=== PATIENT | female | born 1945 | race Hispanic/Latino ===

== ENCOUNTER 2017-10-26 07:33 | Emergency (ER) | payer OTHER ==
[2017-10-26] MEDS ORDERED: KETOROLAC 30 MG/ML INJ ONE (07:58)
[2017-10-26] MEDS ORDERED: ONDANSETRON 4 MG/2 ML VIAL ONE (07:58)
[2017-10-26] MEDS ORDERED: NA CHLORIDE 0.9% 1,000 ML ONE (07:59)
[2017-10-26 08:11] LABS: Absolute Lymphocytes (CBC) 4.4 K/uL (0.7-4.9); Absolute Monocytes 0.4 K/uL (0.1-1.3); Basophils % 1.6 % (0-1.3); Eosinophils % 1.3 % (0-4.4); Hematocrit 43.4 % (36.0-45.0); Lymphocytes % 54.1 % (15.3-44.8); MCH 32.2 pg (27.0-35.0); MCV 92.3 fL (80-100); MPV 8.9 fL (7.6-11.3); Monocytes % 5.6 % (3.3-12.3)
[2017-10-26 08:18] LABS: Urine Bacteria <20 /HPF (<20); Urine Culture Reflex Order NOT NEEDED; Urine RBC <5 /HPF (NONE SEEN)
[2017-10-26 08:27] LABS: Albumin 4.2 g/dL (3.4-5.0); Bilirubin Direct 0.2 mg/dL (0-0.2); Bilirubin Total 0.5 mg/dL (0.2-1.0); Potassium 3.5 mmol/L (3.5-5.1); Protein, Total 8.8 g/dL (6.4-8.2)
--- NOTE | 2017-10-26 09:38 | RAD REPORT ---
EXAM DESCRIPTION: CT - Abdomen Pelvis W Contrast - 10/26/2017 9:01 am CLINICAL HISTORY: Abdominal pain/right lower quadrant pain since yesterday. Diarrhea COMPARISON: March 2017 and 2013 TECHNIQUE: Computed axial tomography of the abdomen pelvis was obtained. 100 cc Isovue-300 was admin istered intravenously. Oral contrast was not requested which limits evaluation of bowel. All CT scans are performed using dose optimization technique as appropriate and may include automated exposure control or mA/KV adjustment according to patient size. FINDINGS: The gallbladder is mildly distended. Small hepatic cysts are present Spleen, pancreas, left adrenal and kidneys appear unremarkable. A 9 millimeter right adrenal mass is without significant change probably representing an adenoma. There is no evidence of diverticulitis. The appendix is normal A tiny umbilical hernia is present. A hysterectomy has been performed IMPRESSION: Mild gallbladder distention. Ultrasound may be helpful
[2017-10-26] MEDS ORDERED: FENTANYL CITR 100 MCG/2 ML ONE (10:22)
--- NOTE | 2017-10-26 12:03 | RAD REPORT ---
EXAM DESCRIPTION: US - Abdomen Exam Limited - 10/26/2017 10:36 am CLINICAL HISTORY: Abdominal pain. COMPARISON: Cat scan October 26, 2017 FINDINGS: The gallbladder wall is not thickened. A gallstone is not seen. Gallbladder is mildly dis tended The biliary tree is normal caliber. IMPRESSION: Mild gallbladder distention. Otherwise unremarkable exam
--- NOTE | 2017-10-26 12:14 | ER ---
Nurse's Notes [facility] Name: Maggie Hansen Age: 72 yrs Sex: Female : 1945 Arrival Date: 10/26/2017 Time: 07:35 Bed 5 Private MD: Diagnosis: Acute R lower quadrant abdominal pain;Diarrhea Presentation: 10/26 07:48 Presenting complaint: Patient states: diarrhea since yesterday, RLQ pain since this la1 morning. Transition of care: patient was not received from another setting of care. Onset of symptoms was October 26, 2017. Risk Assessment: Do you want to hurt yourself or someone else? Patient reports no desire to harm self or others. Initial Sepsis Screen: Does the patient meet any 2 criteria? No. Patient's initial sepsis screen is negative. Does the patient have a suspected source of infection? No. Patient's initial sepsis screen is negative. Care prior to arrival: None. 07:48 Method Of Arrival: Ambulatory la1 07:48 Acuity: NETTA 3 la1 Historical: - Allergies: 07:50 No Known Allergies; la1 - Home Meds: 07:50 metformin 1,000 mg Oral tr24 1 tab twice a day [Active]; lisinopril-hydrochlorothiazide la1 20-12.5 mg Oral tab 1 tab once daily [Active]; benzonatate 100 mg oral cap 1 cap 3 times per day [Active]; nifedipine 90 mg Oral TbER 1 tab once daily [Active]; meloxicam 7.5 mg oral tab 1 tab once daily [Active]; glimepiride 4 mg Oral tab 1 tab once daily [Active]; - PMHx: 07:50 Diabetes - NIDDM; Diverticulitis; Hypertension; la1 - Immunization history:: Adult Immunizations up to date. - Social history:: Smoking status: Patient/guardian denies using tobacco. - Ebola Screening: : No symptoms or risks identified at this time. - Family history:: not pertinent. - Hospitalizations: : No recent hospitalization is reported. Screenin:51 Abuse screen: Denies threats or abuse. Nutritional screening: No deficits noted. la1 Tuberculosis screening: No symptoms or risk factors identified. Fall Risk None identified. Assessment: 07:51 General: Appears uncomfortable, Behavior is cooperative. Pain: Complains of pain in la1 suprapubic area and right lower quadrant. Neuro: Level of Consciousness is awake, alert, obeys commands, Oriented to person, place, time, situation. Cardiovascular: Patient's skin is warm and dry. Respiratory: Airway is patent Respiratory effort is even, unlabored, Respiratory pattern is regular, symmetrical. GI: Abdomen is non-distended, obese, Bowel sounds present X 4 quads. Abd is soft X 4 quads Abdomen is tender to palpation in suprapubic area and right lower quadrant. GI: Reports diarrhea, nausea, Patient currently denies rectal bleeding. : No signs and/or symptoms were reported regarding the genitourinary system. 09:10 Reassessment: Patient appears in no apparent distress at this time. No changes from la1 previously documented assessment. Patient and/or family updated on plan of care and expected duration. Pain level reassessed. 12:28 Reassessment: Patient appears in no apparent distress at this time. No changes from la1 previously documented assessment. Patient and/or family updated on plan of care and expected duration. Pain level reassessed. Vital Signs: 07:50 BP 172 / 88; Pulse 62; Resp 15; Temp 97.7(O); Pulse Ox 94% on R/A; la1 08:02 BP 156 / 79; la1 10:25 BP 175 / 84; Pulse 56; Resp 19; Pulse Ox 94% on R/A; la1 11:32 BP 151 / 77; Pulse 59; Resp 19; Pulse Ox 100% on R/A; la1 12:28 BP 145 / 74; Pulse 61; Resp 19; Temp 97.6; Pulse Ox 100% on R/A; la1 ED Course: 07:35 Patient arrived in ED. as 07:37 Austin Milian PA is PHCP. jmm 07:38 Jesus Guillen MD is Attending Physician. jmm 07:47 Giovani Painter, [place] is Primary Nurse. la1 07:48 Triage completed. la1 07:50 Arm band placed on left wrist. la1 07:51 Placed in gown. Bed in low position. Call light in reach. Pulse ox on. NIBP on. la1 07:53 Radiology exam delayed due to lab results not completed at this time. (BUN/Creatinine). mw3 08:01 Inserted saline lock: 20 gauge in right forearm, using aseptic technique. Blood la1 collected. 08:56 CT completed. Patient tolerated procedure well. Patient moved back from CT. vr 09:00 CT Abd/Pelvis - W/Contrast In Process Unspecified. EDMS 10:34 Ultrasound completed. Patient tolerated well. aa4 10:34 US Abdomen Limited In Process Unspecified. EDMS 12:12 Jesus Villa MD is Referral Physician. ia 12:28 No provider procedures requiring assistance completed. IV discontinued, intact, la1 bleeding controlled, No redness/swelling at site. Pressure dressing applied. Administered Medications: 08:00 Drug: Zofran 4 mg Route: IVP; Site: right forearm; la1 09:23 Follow up: Response: No adverse reaction la1 08:00 Drug: TORadol 30 mg Route: IVP; Site: right forearm; la1 09:23 Follow up: Response: No adverse reaction; Pain is decreased la1 08:00 Drug: NS 0.9% 500 ml Route: IV; Rate: bolus; Site: right forearm; la1 09:23 Follow up: IV Status: Completed infusion la1 10:25 Drug: fentaNYL (PF) 50 mcg Route: IVP; Site: right forearm; la1 12:28 Follow up: Response: No adverse reaction; Pain is decreased la1 Outcome: 12:13 Discharge ordered by . wa 12:28 Discharged to home ambulatory, with family. la1 12:28 Condition: stable 12:28 Discharge instructions given to patient, Instructed on discharge instructions, follow up and referral plans. medication usage, Demonstrated understanding of instructions, follow-up care, medications, Prescriptions given X 4. 12:28 Patient left the ED. la1 Signatures: Dispatcher [employer] EDVT Austin Milian PA PA jmm Martinez, Amelia as Frazier, Amanda aaJasmina Cesar Lee, RN RN la1 Jesus Guillen MD MD wa Willis, Michelle mw3
--- NOTE | 2017-10-26 12:14 | EDPHYS ---
Physician Documentation [facility] Name: Maggie Hansen Age: 72 yrs Sex: Female : 1945 Arrival Date: 10/26/2017 Time: 07:35 Bed 5 Private MD: ED Physician Jesus Guillen HPI: 10/26 07:51 This 72 yrs old Female presents to ER via Ambulatory with complaints of wa Abdominal Pain. 07:51 The patient presents with abdominal pain in the periumbilical area. in the right upper wa quadrant, right lower quadrant. Onset: The symptoms/episode began/occurred 6 hour(s) ago, states began having diarrhea yesterday. Abd pain began at 2 AM last night. admits to nausea. no vomiting. denies fever. describes pain as burning. not radiating. admits to mild low back pain association. The symptoms do not radiate. Associated signs and symptoms: Pertinent positives: diarrhea, nausea, Pertinent negatives: chest pain, dysuria, fever, hematuria, palpitations, shortness of breath, vomiting. The symptoms are described as burning. Modifying factors: The symptoms are alleviated by nothing, the symptoms are aggravated by nothing. Severity of pain: At its worst the pain was moderate in the emergency department the pain is unchanged. The patient has experienced similar episodes in the past, a few times. The patient has not recently seen a physician. Historical: - Allergies: 07:50 No Known Allergies; la1 - Home Meds: 07:50 metformin 1,000 mg Oral tr24 1 tab twice a day [Active]; lisinopril-hydrochlorothiazide la1 20-12.5 mg Oral tab 1 tab once daily [Active]; benzonatate 100 mg oral cap 1 cap 3 times per day [Active]; nifedipine 90 mg Oral TbER 1 tab once daily [Active]; meloxicam 7.5 mg oral tab 1 tab once daily [Active]; glimepiride 4 mg Oral tab 1 tab once daily [Active]; - PMHx: 07:50 Diabetes - NIDDM; Diverticulitis; Hypertension; la1 - Immunization history:: Adult Immunizations up to date. - Social history:: Smoking status: Patient/guardian denies using tobacco. - Ebola Screening: : No symptoms or risks identified at this time. - Family history:: not pertinent. - Hospitalizations: : No recent hospitalization is reported. ROS: 07:54 Constitutional: Negative for fever, chills, and weight loss, Eyes: Negative for injury, wa pain, redness, and discharge, ENT: Negative for injury, pain, and discharge, Neck: Negative for injury, pain, and swelling, Cardiovascular: Negative for chest pain, palpitations, and edema, Respiratory: Negative for shortness of breath, cough, wheezing, and pleuritic chest pain, : Negative for injury, bleeding, discharge, and swelling, MS/Extremity: Negative for injury and deformity, Skin: Negative for injury, rash, and discoloration, Neuro: Negative for headache, weakness, numbness, tingling, and seizure, Psych: Negative for depression, anxiety, suicide ideation, homicidal ideation, and hallucinations. 07:54 Abdomen/GI: Positive for abdominal pain, nausea, diarrhea, Negative for vomiting, rectal pain, rectal bleeding. 07:54 Back: Positive for pain at rest, flank pain, on the right, of the diffuse lower back. 07:54 All other systems are negative. Exam: 07:56 Constitutional: This is a well developed, well nourished patient who is awake, alert, wa and in no acute distress. Head/Face: Normocephalic, atraumatic. Eyes: Pupils equal round and reactive to light, extra-ocular motions intact. Lids and lashes normal. Conjunctiva and sclera are non-icteric and not injected. Cornea within normal limits. Periorbital areas with no swelling, redness, or edema. ENT: Nares patent. No nasal discharge, no septal abnormalities noted. Tympanic membranes are normal and external auditory canals are clear. Oropharynx with no redness, swelling, or masses, exudates, or evidence of obstruction, uvula midline. Mucous membranes moist. Neck: Trachea midline, no thyromegaly or masses palpated, and no cervical lymphadenopathy. Supple, full range of motion without nuchal rigidity, or vertebral point tenderness. No Meningismus. Chest/axilla: Normal chest wall appearance and motion. Nontender with no deformity. No lesions are appreciated. Cardiovascular: Regular rate and rhythm with a normal S1 and S2. No gallops, murmurs, or rubs. Normal PMI, no JVD. No pulse deficits. Respiratory: Lungs have equal breath sounds bilaterally, clear to auscultation and percussion. No rales, rhonchi or wheezes noted. No increased work of breathing, no retractions or nasal flaring. Skin: Warm, dry with normal turgor. Normal color with no rashes, no lesions, and no evidence of cellulitis. MS/ Extremity: Pulses equal, no cyanosis. Neurovascular intact. Full, normal range of motion. Neuro: Awake and alert, GCS 15, oriented to person, place, time, and situation. Cranial nerves II-XII grossly intact. Motor strength 5/5 in all extremities. Sensory grossly intact. Cerebellar exam normal. Normal gait. Psych: Awake, alert, with orientation to person, place and time. Behavior, mood, and affect are within normal limits. 07:56 Abdomen/GI: Inspection: abdomen appears normal, Bowel sounds: normal, in all quadrants, Palpation: soft, in all quadrants, mild abdominal tenderness, in the epigastric area, moderate abdominal tenderness, in the right upper quadrant, severe abdominal tenderness, in the right lower quadrant. 07:56 Back: pain, is absent. Vital Signs: 07:50 BP 172 / 88; Pulse 62; Resp 15; Temp 97.7(O); Pulse Ox 94% on R/A; la1 08:02 BP 156 / 79; la1 10:25 BP 175 / 84; Pulse 56; Resp 19; Pulse Ox 94% on R/A; la1 11:32 BP 151 / 77; Pulse 59; Resp 19; Pulse Ox 100% on R/A; la1 12:28 BP 145 / 74; Pulse 61; Resp 19; Temp 97.6; Pulse Ox 100% on R/A; la1 MDM: 07:48 Patient medically screened. wa 07:57 Differential diagnosis: AAA, appendicitis, bowel obstruction, cholecystitis, wa diverticulitis, Mesenteric ischemia or infarction, non-specific abd pain, pancreatitis, Peritonitis, Ureterolithiasis, urinary tract infection. 07:57 Differential diagnosis: elderly female with abd pain and diarrhea. broad differential. wa will work up and reassess. pain control, anti-emetics, reassess. 12:10 Data reviewed: vital signs, nurses notes, lab test result(s), radiologic studies. Test wa interpretation: by ED physician or midlevel provider: elevated liver enzymes, otherwise labs wnl. CT abd/pelvis, US RUQ: mild gallbladder distention. no pericholecystic fluid or wall thickening. Response to treatment: the patient's symptoms have markedly improved after treatment. 10/26 07:48 Order name: Basic Metabolic Panel; Complete Time: 09: ct 10/26 07:48 Order name: CBC with Diff; Complete Time: 09:00 ct 10/26 07:48 Order name: Hepatic Function; Complete Time: 09:00 ct 10/26 07:48 Order name: Lipase; Complete Time: 09: ct 10/26 07:48 Order name: Urine Microscopic Only; Complete Time: 09: ct 10/26 07:49 Order name: Urine Dipstick--Ancillary (enter results) 10/26 07:48 Order name: IV Saline Lock; Complete Time: 08: ct 10/26 07:48 Order name: Labs collected and sent; Complete Time: 08: ct 10/26 07:49 Order name: CT Abd/Pelvis - W/Contrast; Complete Time: 12:10 ct 10/26 09:54 Order name: US Abdomen Limited; Complete Time: 12:09 ct 10/26 07:48 Order name: Urine Dipstick-Ancillary (obtain specimen); Complete Time: 07:52 ct Administered Medications: 08:00 Drug: Zofran 4 mg Route: IVP; Site: right forearm; la1 09:23 Follow up: Response: No adverse reaction la1 08:00 Drug: TORadol 30 mg Route: IVP; Site: right forearm; la1 09:23 Follow up: Response: No adverse reaction; Pain is decreased la1 08:00 Drug: NS 0.9% 500 ml Route: IV; Rate: bolus; Site: right forearm; la1 09:23 Follow up: IV Status: Completed infusion la1 10:25 Drug: fentaNYL (PF) 50 mcg Route: IVP; Site: right forearm; la1 12:28 Follow up: Response: No adverse reaction; Pain is decreased la1 Disposition: 10/26/17 12:13 Discharged to Home. Impression: Acute R lower quadrant abdominal pain, Diarrhea. - Condition is Stable. - Discharge Instructions: Abdominal Pain, Adult, [id number], Diarrhea, Adult, [id number]. - Prescriptions for Flagyl 500 mg Oral Tablet - take 1 tablet by ORAL route every 12 hours for 7 days; 14 tablet. Zofran 4 mg Oral Tablet - take 1 tablet by ORAL route every 12 hours As needed; 20 tablet. Cipro 500 mg Oral Tablet - take 1 tablet by ORAL route every 12 hours for 7 days; 14 tablet. Tramadol 50 mg Oral Tablet - take 1 tablet by ORAL route every 8 hours as needed; 12 tablet. - Medication Reconciliation Form, Thank You Letter, Antibiotic Education, Prescription Opioid Use form. - Follow up: Jesus Villa MD; When: 1 - 2 days; Reason: Recheck today's complaints. - Problem is new. - Symptoms have improved. - Notes: follow up with the gastro doctor within 2 days for further evaluation of your symptoms but return here immediately for worsening pain and or vomiting and or diarrhea Signatures: Dispatcher [employer] EDMS Giovani Painter RN RN la1 Jesus Guillen MD MD wa Corrections: (The following items were deleted from the chart) 12:28 12:13 10/26/2017 12:13 Discharged to Home. Impression: Acute R lower quadrant abdominal la1 pain; Diarrhea. Condition is Stable. Forms are Medication Reconciliation Form, Thank You Letter, Antibiotic Education, Prescription Opioid Use. Follow up: Jesus Villa; When: 1 - 2 days; Reason: Recheck today's complaints. Problem is new. Symptoms have improved. wa
[2017-10-26 13:50] LABS: Urine Blood TRACE (NEG); Urine Glucose NEGATIVE (NEG); Urine Protein NEGATIVE (NEG); Urine pH 5.5 (5.0-7.0)
== END 2017-10-26 12:28 | disposition home or self-care (01) ==
LOC: ER 07:33
DX: R10.31 Right lower quadrant pain (principal); R19.7 Diarrhea, unspecified; E11.9 Type 2 diabetes mellitus without complications; I10 Essential (primary) hypertension; Z79.84 Long term (current) use of oral hypoglycemic drugs
CPT/HCPCS: 36415; 74177; 76705; 80048; 80076; 83690; 85025; 96361; 96374; 96375; 99284; J2405; J3010; J7030; Q9967; 81003; 81015

== ENCOUNTER 2018-07-02 09:20 | Emergency (ER) | payer OTHER ==
[2018-07-02 10:13] LABS: Urine Blood TRACE (NEG); Urine Glucose NEGATIVE (NEG); Urine Protein TRACE (NEG)
[2018-07-02 10:22] LABS: Absolute Monocytes 0.6 K/uL (0.1-1.3); Absolute Neutrophil 3.2 K/uL (1.8-8.0); Basophils % 0.5 % (0-1.3); Eosinophils % 1.5 % (0-4.4); Hematocrit 40.3 % (36.0-45.0); Lymphocytes % 50.6 % (15.3-44.8); MPV 8.5 fL (7.6-11.3); RBC Red Blood Cell Count 4.39 M/uL (3.86-4.86)
[2018-07-02] MEDS ORDERED: METOCLOPRAMIDE 10 MG/2mL INJ ONE ×2 (10:26→10:32)
[2018-07-02] MEDS ORDERED: DIPHENHYDRAMINE 50 MG/ML VIAL ONE (10:26)
[2018-07-02] MEDS ORDERED: KETOROLAC 30 MG/ML INJ ONE (10:27)
[2018-07-02] MEDS ORDERED: NA CHLORIDE 0.9% 1,000 ML ONE (10:27)
[2018-07-02] MEDS ORDERED: CEFTRIAXONE/SWI 1gm 1 GM/10 ML SYR ONE (10:27)
--- NOTE | 2018-07-02 10:30 | RAD REPORT ---
EXAM DESCRIPTION: CT - Head Brain Wo Cont - 07/02/2018 10:23 am CLINICAL HISTORY: Headache, blurred vision COMPARISON: None. TECHNIQUE: Axial 5 mm thick images of the head were obtained without IV contrast. All CT scans are performed using dose optimization technique as appropriate and may include automated exposure control or mA/KV adjustment according to patient size. FINDINGS: No intracranial hemorrhage, mass, edema or shift of mid-line structures. No acute infarcti on changes seen. No abnormal extra-axial fluid collections. Minimal atrophy changes are present. No s ignificant chronic ischemic change identifiable. Ventricles are normal for the amount of volume loss. Mastoid air cells and visualized portions of the paranasal sinuses are clear. No acute bony findings. IMPRESSION: Negative non-contrast CT head examination for acute finding.
[2018-07-02] MEDS ORDERED: NA CHLORIDE 0.9% 100 ML IV ONE (10:32)
[2018-07-02 10:33] LABS: Urine Bacteria <20 /HPF (<20); Urine Culture Reflex Order NOT NEEDED; Urine RBC <5 /HPF (NONE SEEN)
[2018-07-02 10:40] LABS: Albumin 4.1 g/dL (3.4-5.0); Bilirubin Direct 0.1 mg/dL (0-0.2); Bilirubin Total 0.6 mg/dL (0.2-1.0); Potassium 3.8 mmol/L (3.5-5.1); Protein, Total 8.5 g/dL (6.4-8.2)
--- NOTE | 2018-07-02 10:49 | EDPHYS ---
Physician Documentation [facility] Name: Maggie Hansen Age: 73 yrs Sex: Female : 1945 Arrival Date: 07/02/2018 Time: 09:22 Bed 6 Private MD: ED Physician Jun Goncalves HPI: 07/02 10:47 This 73 yrs old Female presents to ER via Ambulatory with complaints of ma2 Headache, Dizziness. 10:47 The patient complains of pain to the forehead. Onset: The symptoms/episode ma2 began/occurred gradually, 1 day(s) ago. Associated signs and symptoms: Pertinent negatives: dizziness, neck stiffness, Photophobia sinus congestion, vertigo. Severity of symptoms: At its worst the pain was mild, in the emergency department the pain is unchanged. Headache History: The patient has had previous headaches and this one is similar to previous episodes. The patient has experienced similar episodes in the past. gradual headache. Historical: - Allergies: 09:40 No Known Allergies; aa5 - PMHx: 09:40 Diabetes - NIDDM; Diverticulitis; Hypertension; aa5 - PSHx: 09:40 ; Hysterectomy; neck; right shoulder; abd abscess; aa5 - Immunization history:: Adult Immunizations unknown. - Social history:: Patient/guardian denies using alcohol, street drugs, The patient lives with family, Smoking status: Patient/guardian denies using tobacco. - Ebola Screening: : No symptoms or risks identified at this time. - Family history:: not pertinent. ROS: 10:47 Constitutional: Negative for fever, chills, and weight loss. ma2 10:47 Neuro: Positive for headache, Negative for altered mental status, dizziness, speech changes, syncope, near syncope, tremor, weakness. 10:47 All other systems are negative. Exam: 10:47 Constitutional: This is a well developed, well nourished patient who is awake, alert, ma2 and in no acute distress. Head/Face: Normocephalic, atraumatic. Eyes: Pupils equal round and reactive to light, extra-ocular motions intact. Lids and lashes normal. Conjunctiva and sclera are non-icteric and not injected. Cornea within normal limits. Periorbital areas with no swelling, redness, or edema. ENT: Nares patent. No nasal discharge, no septal abnormalities noted. Tympanic membranes are normal and external auditory canals are clear. Oropharynx with no redness, swelling, or masses, exudates, or evidence of obstruction, uvula midline. Mucous membranes moist. Neck: Trachea midline, no thyromegaly or masses palpated, and no cervical lymphadenopathy. Supple, full range of motion without nuchal rigidity, or vertebral point tenderness. No Meningismus. Chest/axilla: Normal chest wall appearance and motion. Nontender with no deformity. No lesions are appreciated. Cardiovascular: Regular rate and rhythm with a normal S1 and S2. No gallops, murmurs, or rubs. Normal PMI, no JVD. No pulse deficits. Respiratory: Lungs have equal breath sounds bilaterally, clear to auscultation and percussion. No rales, rhonchi or wheezes noted. No increased work of breathing, no retractions or nasal flaring. Abdomen/GI: Soft, non-tender, with normal bowel sounds. No distension or tympany. No guarding or rebound. No evidence of tenderness throughout. Back: No spinal tenderness. No costovertebral tenderness. Full range of motion. Skin: Warm, dry with normal turgor. Normal color with no rashes, no lesions, and no evidence of cellulitis. MS/ Extremity: Pulses equal, no cyanosis. Neurovascular intact. Full, normal range of motion. Neuro: Awake and alert, GCS 15, oriented to person, place, time, and situation. Cranial nerves II-XII grossly intact. Motor strength 5/5 in all extremities. Sensory grossly intact. Cerebellar exam normal. Normal gait. Psych: Awake, alert, with orientation to person, place and time. Behavior, mood, and affect are within normal limits. Vital Signs: 09:40 BP 127 / 71; Pulse 58; Resp 16 S; Temp 97.8(TE); Pulse Ox 97% on R/A; Weight 70.31 kg aa5 (R); Height 5 ft. 1 in. (154.94 cm) (R); Pain 6/10; 10:30 BP 122 / 71; Pulse 53; Resp 18 S; Pulse Ox 96% on R/A; Pain 6/10; aa5 09:40 Body Mass Index 29.29 (70.31 kg, 154.94 cm) aa5 MDM: 09:38 Patient medically screened. ma2 10:47 Differential diagnosis: migraine, sinusitis, uti. Data reviewed: vital signs, nurses ma2 notes. Counseling: I had a detailed discussion with the patient and/or guardian regarding: the historical points, exam findings, and any diagnostic results supporting the discharge/admit diagnosis, the presence of at least one elevated blood pressure reading (>120/80) during this emergency department visit, the need for outpatient follow up. Response to treatment: the patient's symptoms have resolved after treatment. 07/02 09:54 Order name: Urine Dipstick--Ancillary (enter results); Complete Time: 10:29 bd 07/02 09:57 Order name: Urine Microscopic Only; Complete Time: 10:47 aa5 07/02 10:03 Order name: Basic Metabolic Panel; Complete Time: 10:47 ma2 07/02 10:03 Order name: CBC with Diff ma2 07/02 10:03 Order name: Creatinine for Radiology; Complete Time: 10:47 ma2 07/02 10:03 Order name: Hepatic Function; Complete Time: 10:47 ma2 07/02 10:03 Order name: Lipase; Complete Time: 10:47 ma2 07/02 10:03 Order name: CT Head Brain wo Cont; Complete Time: 10:47 ma2 07/02 10:24 Order name: Manual Differential EDMS 07/02 09:38 Order name: NPO; Complete Time: 09:41 ma2 07/02 09:39 Order name: Urine Dipstick-Ancillary (obtain specimen); Complete Time: 09:53 ma2 07/02 10:03 Order name: IV Saline Lock; Complete Time: 10:23 ma2 07/02 10:03 Order name: Labs collected and sent; Complete Time: 10:23 ma2 Administered Medications: 10:27 Drug: Benadryl 25 mg Route: IVP; Site: right forearm; aa5 10:35 Follow up: Response: No adverse reaction aa5 10:28 Drug: NS 0.9% 1000 ml Route: IV; Rate: 1 bolus; Site: right forearm; aa5 11:08 Follow up: IV Status: Completed infusion; IV Intake: 1000ml aa5 10:28 Drug: TORadol 30 mg Route: IVP; Site: right forearm; aa5 10:35 Follow up: Response: No adverse reaction aa5 10:30 Drug: Rocephin 1 grams Route: IV; Rate: calculated rate; Site: right forearm; aa5 10:32 Follow up: IV Status: Completed infusion; IV Intake: 10ml aa5 10:34 Follow up: Response: No adverse reaction aa5 10:33 Drug: Reglan 20 mg Route: IVP; Site: right forearm; aa5 10:48 Follow up: Response: No adverse reaction; infusion completed. aa5 Point of Care Testing: Blood Glucose: 09:46 Blood Glucose: 156 mg/dL; aa5 Ranges: Critical Glucose Levels:Adult <50 mg/dl or >400 mg/dl <40 mg/dl or >180 mg/dl Disposition: 07/02/18 10:49 Discharged to Home. Impression: Cystitis, unspecified without hematuria. - Condition is Stable. - Discharge Instructions: Urinary Tract Infection, Adult. - Prescriptions for Bactrim DS 800- 160 mg Oral Tablet - take 1 tablet by ORAL route every 12 hours for 10 days; 20 tablet. Tylenol- Codeine #3 300-30 mg Oral Tablet - take 2 tablet by ORAL route every 6 hours As needed; 30 tablet. - Medication Reconciliation Form, Thank You Letter, Antibiotic Education, Prescription Opioid Use form. - Follow up: Private Physician; When: Tomorrow; Reason: Continuance of care. Signatures: Dispatcher [employer] Sarah Diehl RN RN aa5 Jun Goncalves MD MD ma2 Corrections: (The following items were deleted from the chart) 11:10 10:49 07/02/2018 10:49 Discharged to Home. Impression: Cystitis, unspecified without aa5 hematuria. Condition is Stable. Prescriptions for Bactrim DS 800-160 mg Oral Tablet - take 1 tablet by ORAL route every 12 hours for 10 days; 20 tablet, Tylenol-Codeine #3 300-30 mg Oral Tablet - take 2 tablet by ORAL route every 6 hours As needed; 30 tablet. and Forms are Medication Reconciliation Form, Thank You Letter, Antibiotic Education, Prescription Opioid Use. Follow up: Private Physician; When: Tomorrow; Reason: Continuance of care. ma2
--- NOTE | 2018-07-02 10:49 | ER ---
Nurse's Notes [facility] Name: Maggie Hansen Age: 73 yrs Sex: Female : 1945 Arrival Date: 07/02/2018 Time: : Bed 6 Private MD: Diagnosis: Cystitis, unspecified without hematuria Presentation: 07/02 09:37 Presenting complaint: Patient states: "I was eating dinner last night and I had blurry aa5 vision and felt dizzy for about 30 minutes and then it went away". Pt currently denies dizziness, blurry vision. Pt c/o headache and ringing in ears. Denies nausea/vomiting. Transition of care: patient was not received from another setting of care. Onset of symptoms was July 01, 2018. Risk Assessment: Do you want to hurt yourself or someone else? Patient reports no desire to harm self or others. Initial Sepsis Screen: Does the patient meet any 2 criteria? No. Patient's initial sepsis screen is negative. Does the patient have a suspected source of infection? No. Patient's initial sepsis screen is negative. Care prior to arrival: None. 09:37 Method Of Arrival: Ambulatory aa5 09:37 Acuity: NETTA 3 aa5 Historical: - Allergies: 09:40 No Known Allergies; aa5 - PMHx: 09:40 Diabetes - NIDDM; Diverticulitis; Hypertension; aa5 - PSHx: 09:40 ; Hysterectomy; neck; right shoulder; abd abscess; aa5 - Immunization history:: Adult Immunizations unknown. - Social history:: Patient/guardian denies using alcohol, street drugs, The patient lives with family, Smoking status: Patient/guardian denies using tobacco. - Ebola Screening: : No symptoms or risks identified at this time. - Family history:: not pertinent. Screenin:46 Abuse screen: Denies threats or abuse. Nutritional screening: No deficits noted. aa5 Tuberculosis screening: No symptoms or risk factors identified. Fall Risk None identified. Assessment: 09:40 General: Appears comfortable, Behavior is calm, cooperative. Pain: Complains of pain in aa5 whole head Pain does not radiate. Pain currently is 6 out of 10 on a pain scale. Quality of pain is described as pressure, Pain began this morning Is continuous. 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 Gait is steady, Speech is normal, Facial symmetry appears normal, Pupils are PERRLA. Cardiovascular: Heart tones S1 S2 present Rhythm is regular. Respiratory: Airway is patent Respiratory effort is even, unlabored, Respiratory pattern is regular, symmetrical. GI: Patient currently denies nausea, vomiting. : No signs and/or symptoms were reported regarding the genitourinary system. EENT: No signs and/or symptoms were reported regarding the EENT system. Derm: Skin is pink, warm \\T\\ dry. Musculoskeletal: Range of motion: intact in all extremities. 10:16 Reassessment: Patient is alert, oriented x 3, equal unlabored respirations, skin aa5 warm/dry/pink. Pt taken to CT . 10:36 Reassessment: Patient is alert, oriented x 3, equal unlabored respirations, skin aa5 warm/dry/pink. Pt back from CT . 10:59 Reassessment: Patient is alert, oriented x 3, equal unlabored respirations, skin aa5 warm/dry/pink. Patient states feeling better. Pain: Pain currently is 3 out of 10 on a pain scale. Vital Signs: 09:40 BP 127 / 71; Pulse 58; Resp 16 S; Temp 97.8(TE); Pulse Ox 97% on R/A; Weight 70.31 kg aa5 (R); Height 5 ft. 1 in. (154.94 cm) (R); Pain 6/10; 10:30 BP 122 / 71; Pulse 53; Resp 18 S; Pulse Ox 96% on R/A; Pain 6/10; aa5 09:40 Body Mass Index 29.29 (70.31 kg, 154.94 cm) aa5 ED Course: 09:22 Patient arrived in ED. rg4 09:37 Sarah Zelaya, [place] is Primary Nurse. aa5 09:37 Arm band placed on Patient placed in an exam room, on a stretcher. aa5 09:37 Patient has correct armband on for positive identification. Placed in gown. Bed in low aa5 position. Call light in reach. Side rails up X 1. Adult w/ patient. 09:38 Jun Goncalves MD is Attending Physician. ma2 09:39 Triage completed. aa5 10:15 No provider procedures requiring assistance completed. Initial lab(s) drawn, by , aa5 sent to lab. Inserted saline lock: 20 gauge in right forearm, using aseptic technique. Blood collected. 10:23 CT Head Brain wo Cont In Process Unspecified. EDMS 10:34 CT completed. Patient tolerated procedure well. Patient moved to CT via wheelchair. jg6 Patient moved back from CT. 11:08 IV discontinued, intact, bleeding controlled, No redness/swelling at site. Pressure aa5 dressing applied. Administered Medications: 10:27 Drug: Benadryl 25 mg Route: IVP; Site: right forearm; aa5 10:35 Follow up: Response: No adverse reaction aa5 10:28 Drug: NS 0.9% 1000 ml Route: IV; Rate: 1 bolus; Site: right forearm; aa5 11:08 Follow up: IV Status: Completed infusion; IV Intake: 1000ml aa5 10:28 Drug: TORadol 30 mg Route: IVP; Site: right forearm; aa5 10:35 Follow up: Response: No adverse reaction aa5 10:30 Drug: Rocephin 1 grams Route: IV; Rate: calculated rate; Site: right forearm; aa5 10:32 Follow up: IV Status: Completed infusion; IV Intake: 10ml aa5 10:34 Follow up: Response: No adverse reaction aa5 10:33 Drug: Reglan 20 mg Route: IVP; Site: right forearm; aa5 10:48 Follow up: Response: No adverse reaction; infusion completed. aa5 Point of Care Testing: Blood Glucose: 09:46 Blood Glucose: 156 mg/dL; aa5 Ranges: Intake: 10:32 IV: 10ml; Total: 10ml. aa5 11:08 IV: 1000ml; Total: 1010ml. aa5 Outcome: 10:49 Discharge ordered by . ma2 11:08 Discharged to home ambulatory, with family. aa5 11:08 Condition: improved 11:08 Discharge instructions given to patient, family, Instructed on discharge instructions, follow up and referral plans. medication usage, Demonstrated understanding of instructions, follow-up care, medications, Prescriptions given X 2. 11:10 Patient left the ED. aa5 Signatures: Dispatcher [employer] EDSarah Blakely RN RN aa5 Maryjane Waddell rg4 Jun Goncalves MD MD ma2 Fernanda Waddell jg6 Corrections: (The following items were deleted from the chart) 09:41 09:37 Presenting complaint: Patient states: "I was eating dinner last night and I had aa5 blurry vision and felt dizzy for about 30 minutes and then it went away". Pt currently denies dizziness, blurry vision. Pt c/o headache and ringing in ears. aa5 09:54 09:40 BP 127 / 71; Pulse 58bpm; Resp 16bpm; Spontaneous; Pulse Ox 97% RA; 70.31 kg aa5 Reported; Height 5 ft. 1 in. Reported; BMI: 29.2; Pain 6/10; aa5
[2018-07-02 11:22] LABS: Blood Morphology Comment NOT SEEN (NOT SEEN); Platelet Estimate ADEQ
== END 2018-07-02 11:10 | disposition home or self-care (01) ==
LOC: ER 09:20
DX: N30.90 Cystitis, unspecified without hematuria (principal); I10 Essential (primary) hypertension
CPT/HCPCS: 96361; 85025; 80048; 36415; 82962; 80076; 83690; 70450; 96375; 96374; 99284; J2765 ×2; J0696; J7030; 81003; 81015

== ENCOUNTER 2020-02-29 14:38 | Emergency (ER) | payer OTHER ==
--- NOTE | 2020-02-29 16:57 | RAD REPORT ---
EXAM DESCRIPTION: RAD - Knee Right 3 View - 02/29/2020 4:47 pm CLINICAL HISTORY: PAIN COMPARISON: No comparisons FINDINGS: No fracture, dislocation or periosteal reaction.Large joint effusion is present. Patella m arginal spurs are present. There is significant marginal spurring in the lateral compartment with ilia nt space narrowing. Medial compartment marginal spurs are also present. Calcified loose bodies are se en at the anterior margin of the joint in the midline. No foreign body or other soft tissue abnormali ty. IMPRESSION: Moderately prominent degenerative changes in the knee with large joint effusion and intr a-articular loose bodies. Clinical concerns for internal derangement or occult bony injury could be further assessed with MR im aging.
--- NOTE | 2020-02-29 17:26 | EDPHYS ---
Physician Documentation [facility] Name: Maggie Hansen Age: 74 yrs Sex: Female : 1945 Arrival Date: 02/29/2020 Time: 14:40 Bed 27 Private MD: ED Physician Conner Armendariz HPI: 02/28 17:03 This 74 yrs old Female presents to ER via Wheelchair with complaints of Leg rn Pain. 17:03 The patient presents with pain. The complaints affect the right knee. rn 17:04 Onset: The symptoms/episode began/occurred this morning. Modifying factors: The rn symptoms are alleviated by nothing. the symptoms are aggravated by movement, weight bearing, bending knee. Severity of symptoms: At their worst the symptoms were moderate, in the emergency department the symptoms are unchanged. The patient has not experienced similar symptoms in the past. Reports right knee pain since this AM, no known injury, no fever, does not feel ill. . Historical: - Allergies: 14:47 No Known Allergies; ll1 - PMHx: 14:47 Diabetes - NIDDM; Diverticulitis; Hypertension; ll1 - PSHx: 14:47 ; Hysterectomy; neck; right shoulder; abd abscess; ll1 - Immunization history:: Flu vaccine is up to date. - Social history:: Smoking status: Patient denies any tobacco usage or history of. - Family history:: not pertinent. - Hospitalizations: : No recent hospitalization is reported. ROS: 17:04 Constitutional: Negative for fever, chills, and weight loss, MS/Extremity: Negative for rn injury and deformity, Skin: Negative for injury, rash, and discoloration, Neuro: Negative for weakness, numbness, tingling Exam: 17:04 Constitutional: This is a well developed, well nourished patient who is awake, alert, rn and in no acute distress. MS/ Extremity: Pulses equal, no cyanosis. Neurovascular intact. Mild swelling right knee without erythema or warmth. No streaking or rash. Neuro: Awake and alert, GCS 15 Vital Signs: 14:48 BP 139 / 75; Pulse 53; Resp 17; Temp 97.0; Pulse Ox 100% on R/A; Weight 67.13 kg; ll1 Height 5 ft. (152.40 cm); Pain 10/10; 17:48 BP 148 / 53; Pulse 50; Pulse Ox 100% on R/A; jp3 14:48 Body Mass Index 28.90 (67.13 kg, 152.40 cm) ll1 MDM: 17:01 Patient medically screened. rn 17:24 Differential diagnosis: arthritis, knee effusion. Data reviewed: vital signs, nurses rn notes, radiologic studies, plain films, and as a result, I will discharge patient. Counseling: I had a detailed discussion with the patient and/or guardian regarding: the historical points, exam findings, and any diagnostic results supporting the discharge/admit diagnosis, radiology results, the need for outpatient follow up, to return to the emergency department if symptoms worsen or persist or if there are any questions or concerns that arise at home. Special discussion: I discussed with the patient/guardian in detail that at this point there is no indication for admission to the hospital. It is understood, however, that if the symptoms persist or worsen the patient needs to return immediately for re-evaluation. Based on the history and exam findings, there is no indication for further emergent testing or inpatient evaluation. I discussed with the patient/guardian the need to see the orthopedic surgeon for further evaluation of the symptoms. I discussed with the patient/guardian the need to see the primary care provider for further evaluation of the symptoms. ED course: Pt states noticed when getting up to go use bathroom overnight, may have stepped wrong and had right knee pain. Reports this happens often and eventually goes away, but more painful today. No hx of gout or septic arthritis. . 02/28 15:48 Order name: XRAY Knee RIGHT 3 view; Complete Time: 17:01 rn Administered Medications: 17:42 Drug: Decadron 10 mg Route: IM; Site: right deltoid; iw 17:51 Not Given (Physician Discretion): Motrin 600 mg PO once iw 17:52 Drug: Motrin 400 mg Route: PO; iw Disposition: 02/29/20 17:26 Discharged to Home. Impression: Effusion, right knee, Osteoarthritis of knee. - Condition is Stable. - Discharge Instructions: Arthritis, Knee Effusion, Knee Immobilizer. - Prescriptions for Tramadol 50 mg Oral Tablet - take 1 tablet by ORAL route every 8 hours as needed; 12 tablet. Medrol (Sigifredo) 4 mg Oral Tablets, Dose Pack - take 1 tablet by ORAL route as directed - follow package instructions; 1 packet. - Medication Reconciliation Form, Thank You Letter, Antibiotic Education, Prescription Opioid Use form. - Follow up: Jagdish Reynolds MD; When: 5 - 6 days; Reason: Recheck today's complaints, Re-evaluation by your physician. - Problem is new. - Symptoms have improved. Signatures: Dispatcher [employer] EDBridget Moss RN RN iw Conner Armendariz MD MD rn Lewis, Lynsay, RN RN ll1 Corrections: (The following items were deleted from the chart) 18:13 17:26 02/29/2020 17:26 Discharged to Home. Impression: Effusion, right knee; iw Osteoarthritis of knee. Condition is Stable. Forms are Medication Reconciliation Form, Thank You Letter, Antibiotic Education, Prescription Opioid Use. Follow up: Dr. Jagdish Reynolds; When: 5 - 6 days; Reason: Recheck today's complaints, Re-evaluation by your physician. Problem is new. Symptoms have improved. rn
--- NOTE | 2020-02-29 17:26 | ER ---
Nurse's Notes [facility] Name: Maggie Hansen Age: 74 yrs Sex: Female : 1945 Arrival Date: 02/29/2020 Time: 14:40 Bed 27 Private MD: Diagnosis: Effusion, right knee;Osteoarthritis of knee Presentation: 02/28 14:48 Chief complaint: Patient states: R knee pain since 0100 am. No trauma or falls. ll1 Coronavirus screen: Client denies travel out of the [place] in the last 14 days. At this time, the client does not indicate any symptoms associated with coronavirus-19. Ebola Screen: Patient denies travel to an Ebola-affected area in the 21 days before illness onset. Initial Sepsis Screen: Does the patient meet any 2 criteria? No. Patient's initial sepsis screen is negative. Does the patient have a suspected source of infection? Yes: Bone or joint infection. Risk Assessment: Do you want to hurt yourself or someone else? Patient reports no desire to harm self or others. Onset of symptoms was February 29, 2020. 14:48 Method Of Arrival: Wheelchair ll1 14:48 Acuity: NETTA 4 ll1 Historical: - Allergies: 14:47 No Known Allergies; ll1 - PMHx: 14:47 Diabetes - NIDDM; Diverticulitis; Hypertension; ll1 - PSHx: 14:47 ; Hysterectomy; neck; right shoulder; abd abscess; ll1 - Immunization history:: Flu vaccine is up to date. - Social history:: Smoking status: Patient denies any tobacco usage or history of. - Family history:: not pertinent. - Hospitalizations: : No recent hospitalization is reported. Vital Signs: 14:48 BP 139 / 75; Pulse 53; Resp 17; Temp 97.0; Pulse Ox 100% on R/A; Weight 67.13 kg; ll1 Height 5 ft. (152.40 cm); Pain 10/10; 17:48 BP 148 / 53; Pulse 50; Pulse Ox 100% on R/A; jp3 14:48 Body Mass Index 28.90 (67.13 kg, 152.40 cm) ll1 ED Course: 14:40 Patient arrived in ED. rg4 14:47 Arm band placed on. ll1 14:49 Triage completed. ll1 16:47 XRAY Knee RIGHT 3 view In Process Unspecified. EDMS 17:01 Conner Armendariz MD is Attending Physician. rn 17:25 Jagdish Reynolds MD is Referral Physician. rn 17:31 Bridget Coppola RN is Primary Nurse. iw Administered Medications: 17:42 Drug: Decadron 10 mg Route: IM; Site: right deltoid; iw 17:51 Not Given (Physician Discretion): Motrin 600 mg PO once iw 17:52 Drug: Motrin 400 mg Route: PO; iw Outcome: 17:26 Discharge ordered by . rn 18:13 Patient left the ED. iw Signatures: Dispatcher [employer] EDMS Bridget Coppola RN RN iw Conner Armendariz MD MD rn Garcia, Rubi rg4 Rishi Martinez 3 Sandrita Kern RN RN ll1
[2020-02-29] MEDS ORDERED: dexAMETHasone 10 MG/ML VIAL ONE (17:52)
[2020-02-29] MEDS ORDERED: IBUPROFEN 200 MG TAB PO ONE (17:52)
[2020-02-29 19:32] VITALS: TEMP 97; O2SAT 100
[2020-02-29 19:33] VITALS: BP 148/53
== END 2020-02-29 18:13 | disposition home or self-care (01) ==
LOC: ER 14:38
DX: M25.461 Effusion, right knee (principal); M17.11 Unilateral primary osteoarthritis, right knee; I10 Essential (primary) hypertension
CPT/HCPCS: 73562; 96372; 99283; J1100

== ENCOUNTER 2021-05-12 07:42 | Emergency (ER) | payer OTHER ==
--- OUTSIDE RECORDS SUMMARY | 2021-05-12 07:46 | XMS REPORT | Continuity of Care Document ---
:1945 Author Organization [facility] t Address [address] [place] [address] Care Team Providers Name Role Phone KRAI Attending Clinician Unavailable Luz_Glenroy Attending Clinician Unavailable KIRA Attending Clinician Unavailable KHADIJAH MALDONADO Attending Clinician Unavailable RIANNA_Stephanie Attending Clinician Unavailable KARI Admitting Clinician Unavailable Luz_Thbrian Admitting Clinician Unavailable KIRA Admitting Clinician Unavailable RIANNA_Stephanie Admitting Clinician Unavailable Payers Payer Name Policy Type Policy Number Effective Date Expiration Date Geovanna ALEXANDRA (MEDICARE [id number] 2019 REPLACEMENT PPO) 00:00:00 Problems Condition Condition Condition Status Onset Resolution Last Treating Co mments Source Name Details Category Date Date Treatment Clinician Date Osteopenia Osteopenia Problem Active [facility] Elevated Elevated Problem Active [place] liver Liver 3-23 da enzymes Enzymes 00:00: [facility] level Level 00 al [facility] Hypertrigl Hypertrigl Problem Active [facility] [place] yceridemia yceridemia 3-15 da [facility] Increased Increased Problem Active [place] liver Liver 3-15 da function Function 00:00: [facility] Ex-smoker Ex-smoker Problem Active [place] 3-09 da [facility] Type 2 Type 2 Problem Active [place] diabetes Diabetes da mellitus Mellitus [facility] Hypertensi Hypertensi Problem Active [facility] ve ve da disorder Disorder [facility] Allergies, Adverse Reactions, Alerts This patient has no known allergies or adverse reactions. Social History Smoking Status Start Date Stop Date Source Former Smoker Preston Walsh [facility] Medications Ordered Filled Start Stop Current Ordering Indication Dosage Frequency Signature Comments Components Source Medication Medication Date Date Medication? Clinician (SIG) Name Name alendronate alendronate No alendronat [place] 35 mg 35 mg e 35 mg da tablet TAKE tablet TAKE tablet [facility] 1 TABLET BY 1 TABLET BY TAKE 1 al MOUTH EVERY MOUTH EVERY TABLET BY Health WEEK WEEK MOUTH Outreac DIRECTED DIRECTED EVERY WEEK h Program DIRECTED glimepiride glimepiride No glimepirid [place] 4 mg tablet 4 mg tablet e 4 mg da TAKE 1 TAKE 1 tablet [facility] TABLET BY TABLET BY TAKE 1 al MOUTH IN MOUTH IN TABLET BY He alth THE MORNING THE MORNING MOUTH IN Outreac THE h MORNING Program hydrocortis hydrocortis No hydrocorti [place] one 2.5 % one 2.5 % sone 2.5 % da topical topical topical [facility] p cream APPLY cream APPLY cream al A THIN A THIN APPLY A Health LAYER TO LAYER TO THIN LAYER O utreac THE THE TO THE h AFFECTED AFFECTED AFFECTED Pro gram AREA(S) BY AREA(S) BY AREA(S) BY TOPICAL TOPICAL TOPICAL ROUTE 2 ROUTE 2 ROUTE 2 TIMES PER TIMES PER TIMES PER DAY DAY DAY hydroxyzine hydroxyzine No 1 BID hydroxyzin [place] HCl 25 mg HCl 25 mg e HCl 25 d a tablet Take tablet Take mg tablet [facility] 1 tablet 1 tablet Take 1 al twice a day twice a day tablet Health by oral by oral twice a Outrea c route for route for day by h 10 days. 10 days. oral route P rogram for 10 days. Janumet 50 Janumet 50 No 1 BID Janumet 50 [place] mg-1,000 mg mg-1,000 mg mg-1,000 da tablet Take tablet Take mg tablet [facility] 1 tablet 1 tablet Take 1 al twice a day twice a day tablet Health by oral by oral twice a Outrea c route. route. day by h oral Program route. Jardiance Jardiance No Jardiance [place] 25 mg 25 mg 25 mg da tablet TAKE tablet TAKE tablet [facility] 1 TABLET BY 1 TABLET BY TAKE 1 al MOUTH EVERY MOUTH EVERY TABLET BY Health DAY DAY MOUTH Outreac EVERY DAY h Program lisinopril lisinopril No lisinopril [place] 20 20 20 da mg-hydrochl mg-hydrochl mg-hydroch [facility] orothiazide orothiazide lorothiazi al 12.5 mg 12.5 mg de 12.5 mg Hea lth tablet TAKE tablet TAKE tablet Outreac 2 TABLETS 2 TABLETS TAKE 2 h BY MOUTH BY MOUTH TABLETS BY P rogram EVERY DAY EVERY DAY MOUTH EVERY DAY nifedipine nifedipine No nifedipine [place] ER 90 mg ER 90 mg ER 90 mg da tablet,exte tablet,exte tablet,ext [facility] nded nded ended al release release release Health TAKE 1 TAKE 1 TAKE 1 Outreac TABLET BY TABLET BY TABLET BY h MOUTH EVERY MOUTH EVERY MOUTH Program DAY DAY EVERY DAY OneTouch OneTouch No OneTouch [place] Verio test Verio test Verio test da strips USE strips USE strips USE [facility] TO CHECK TO CHECK TO CHECK al BLOOD SUGAR BLOOD SUGAR BLOOD Health ONCE DAILY ONCE DAILY SUGAR ONCE Outreac DAILY h Program rosuvastati rosuvastati No rosuvastat [place] n 5 mg n 5 mg in 5 mg da tablet TAKE tablet TAKE tablet [facility] 1 TABLET BY 1 TABLET BY TAKE 1 al MOUTH EVERY MOUTH EVERY TABLET BY Health DAY DAY MOUTH Outreac EVERY DAY h Program Victoza Victoza No Victoza [place] 3-Sigifredo 0.6 3-Sigifredo 0.6 3-Sigifredo 0.6 da mg/0.1 mL mg/0.1 mL mg/0.1 mL [facility] (18 mg/3 (18 mg/3 (18 mg/3 al mL) mL) mL) Health subcutaneou subcutaneou subcutaneo Outreac s pen s pen us pen h injector injector injector Pro gram ADMINISTER ADMINISTER ADMINISTER 1.2 MG 1.2 MG 1.2 MG UNDER THE UNDER THE UNDER THE SKIN EVERY SKIN EVERY SKIN EVERY DAY DAY DAY Immunizations Ordered Immunization Filled Immunization Date Status Commen ts Source Name Name COVID-19, mRNA, COVID-19, mRNA, 2021-01-11 Completed Archie lawrence LNP-S, PF, 100 LNP-S, PF, 100 15:55:52 [facility] pal mcg/0.5 mL dose mcg/0.5 mL dose Heal th Outreach (Modern) (Moderna) Program Influenza vaccine, Influenza vaccine, 2020-11-03 Completed [facility] quadrivalent, quadrivalent, 14:54:30 [facility] adjuvanted adjuvanted [facility] pneumococcal pneumococcal 2020-11-03 Completed [facility] polysaccharide PPV23 polysaccharide PPV23 14:53:53 [facility] COVID-19, mRNA, COVID-19, mRNA, 2020-06-10 Completed Almanza howard LNP-S, PF, 100 LNP-S, PF, 100 14:49:48 [facility] pal mcg/0.5 mL dose mcg/0.5 mL dose [facility] (Moderna) (Moderna) Program COVID-19, mRNA, COVID-19, mRNA, 2020-05-06 Completed Almanza howard LNP-S, PF, 100 LNP-S, PF, 100 14:34:12 [facility] pal mcg/0.5 mL dose mcg/0.5 mL dose [facility] (Moderna) (Moderna) Program Vital Signs Vital Name Observation Time Observation Value Comments Source BP Diastolic 2021-01-16 00:00:00 [facility] Height 2021-01-16 00:00:00 62 [in_i[facility] BMI (Body Mass 2021-01-16 00:00:00 25.2 kg/m2 [place] service desk team lead Scientologist Index) [facility] Outreach Program BP Systolic 2021-01-16 00:00:00 136 [facility]Hg[facility] Body Weight 2021-01-16 00:00:00 2208 [facility]oz_av[facility] BP Diastolic 2021-01-03 00:00:00 78 [facility]Hg[facility] Height 2021-01-03 00:00:00 62 [in_i] [place] [facility] BMI (Body Mass 2021-01-03 00:00:00 24.7 kg/m2 [place] service desk team lead Scientologist Index) [facility] BP Systolic 2021-01-03 00:00:00 133 mm[Hg] [facility] Body Weight 2021-01-03 00:00:00 2160 [oz_av] [place] [facility] BP Diastolic 2020-11-03 00:00:00 77 mm[Hg] [place] [facility] Height 2020-11-03 00:00:00 62 [in_i] [place] [facility] BMI (Body Mass 2020-11-03 00:00:00 25.1 kg/m2 [place] service desk team lead Scientologist Index) [facility] BP Systolic 2020-11-03 00:00:00 123 mm[Hg] [place] [facility] Body Weight 2020-11-03 00:00:00 2192 [oz_av] [place] [facility] BP Diastolic 2020-10-03 00:00:00 77 mm[Hg] [place] [facility] Height 2020-10-03 00:00:00 62 [in_i] [place] [facility] BMI (Body Mass 2020-10-03 00:00:00 25.2 kg/m2 [place] service desk team lead Scientologist Index) [facility] BP Systolic 2020-10-03 00:00:00 132 mm[Hg] [place] [facility] Body Weight 2020-10-03 00:00:00 2208 [oz_av] [place] [facility] BP Diastolic 2020-06-28 00:00:00 70 mm[Hg] [place] [facility] Height 2020-06-28 00:00:00 62 [in_i] [place] [facility] BMI (Body Mass 2020-06-28 00:00:00 26 kg/m2 [place] service desk team lead Scientologist Index) [facility] BP Systolic 2020-06-28 00:00:00 114 mm[Hg] [place] [facility] Body Weight 2020-06-28 00:00:00 2275.2 [oz_av] [place] service desk team lead [facility] BP Diastolic 2020 00:00:00 65 mm[Hg] [place] [facility] Height 2020 00:00:00 62 [in_i] [place] [facility] BMI (Body Mass 2020 00:00:00 26.3 kg/m2 [place] service desk team lead Scient[facility] Index) [facility] BP Systolic 2020 00:00:00 103 mm[Hg] [place] [facility] Body Weight 2020 00:00:00 2304 [oz_av] [place] [facility] BP Diastolic 2020-05-10 00:00:00 62 mm[Hg] [place] [facility] Height 2020-05-10 00:00:00 62 [in_i] [place] [facility] BMI (Body Mass 2020-05-10 00:00:00 26.6 kg/m2 [place] service desk team lead Scientologist Index) [facility] Out[facility] BP Systolic 2020-05-10 00:00:00 119 mm[Hg] [place] [facility] Body Weight 2020-05-10 00:00:00 2328 [oz_av] [facility] Procedures Procedure Date / Time Performing Clinician Source Performed Ophthalmic Examination 2020-06-30 00:00:00 Rex fernández [facility] DXA BONE DENSITY, AXIAL 2020-06-28 00:00:00 Archie lawrence [facility] Total Hysterectomy 1994-03-04 00:00:00 [facility] Plan of Care Planned Activity Planned Date Details Comments Source Future Appointment 2021-07-03 00:00:00 Preston Martinez Scientologist [address]; , [place], [place] Program [id number] Encounters Start End Encounter Admission Attending Care Care Encounter Source Date/Time Date/Time Type Type Clinicians Facility Department ID 2021-01-17 2021-01-17 Outpatient KIKE EDGAR [facility] [id number] [place] 07:53:00 07:53:00 _ANN [id number] [facility] 2021-01-16 2021-01-16 Outpatient KIKE HIMARJORIE [facility] [id number] [place] 05:56:00 05:56:00 _ANN [id number] [facility] 2021-01-16 2021-01-16 Yocasta [facility] [place] - [id number] [place] 00:00:00 00:00:00 Preston Dc [employer]PERATIVE: [address] [facility] [address] [facility] [address], [place], [place] [id number] h , Ph. Program 2021-01-11 2021-01-11 Outpatient SHIMEK_MARGIE EDG[facility] 107 [place] 04:38:00 04:38:00 _ANN [id number] [facility] 2021-01-11 2021-01-11 Sophy [facility] [place] - [id number] [place] 00:00:00 00:00:00 Preston West MD: 1700 [facility] [address], [place], [place] Outreac [id number] h , Ph. Program 2021-01-03 2021-01-03 Outpatient SHIMEK_MARGIE EDGAR [facility] 107 [place] 02:10:00 02:10:00 _ANN [id number] [facility] 2021-01-03 2021-01-03 Margie Brown [facility] [place] - [id number] [place] 00:00:00 00:00:00 Preston Bee [employer] OPERATIVE: [address] [facility] [address], [place], [place] 3 Outreac [id number] h , Ph. Program 2020-12-21 2020-12-21 Outpatient SHIMEK_MARGIE [facility] 107 [place] 09:37:00 09:37:00 _ANN [id number] [facility] 2020-11-26 2020-11-26 Outpatient SHIMEK_MARGIE CELAYAHOP [facility] 107 [place] 03:02:00 03:02:00 _ANN [id number] [facility] 2020-11-03 2020-11-03 Outpatient SHIMEK_MARGIE CELAYAHOP 107 [place] 04:43:00 04:43:00 _ANN [id number] [facility] 2020-11-03 2020-11-03 Margie Brown [place] - [id number] [place] 00:00:00 00:00:00 ShimekAllenCosby da [employer] OPERATIVE: [address] [facility] [address] [place] 3 Out[place]ac [id number] h , Ph. Program 2020-10-03 2020-10-03 Outpatient FANEK_MARGIE CELAYAHOP 107 [place] 01:39:00 01:39:00 _ANN [id number] [facility] 2020-10-03 2020-10-03 Margie [place] - [id number] [place] 00:00:00 00:00:00 Chichi Beea da [employer] OPERATIVE: [address] [facility] [place] 3 Outreac [id number] h , Ph. Program 2020-09-28 2020-09-28 Outpatient SHIMEK_MARGIE CELAYAHOP 107 [place] 09:25:00 09:25:00 _ANN [id number] [facility] 2020-06-28 2020-06-28 Outpatient SHIMEK_MARGIE [facility]G[place] [facility] 107 [place] 01:58:00 01:58:00 _ANN [id number] [facility] 2020-06-28 2020-06-28 Margie Brown [place] - [id number] [place] 00:00:00 00:00:00 ShimekAllenCosby da [employer] OPERATIVE: [address] [facility] [address] [place] 3 Outreac [id number] h , Ph. Program 2020-06-10 2020-06-10 Outpatient SHIMEK_MARGIE CELAYAHOP [id number] [place] 02:51:00 02:51:00 _ANN [id number] [facility] 2020-06-10 2020-06-10 Sophy [facility] [place] - [id number] [place] 00:00:00 00:00:00 Preston West MD: 17[address] [facility] [address], [place], [place] Outreac [id number] h , Ph. Program 2020 2020 Outpatient KIKE [facility] 107 [place] 01:25:00 01:25:00 _ANN [id number] [facility] 2020 2020 Asha Stephanie [facility] [place] - [id number] [place] 00:00:00 00:00:00 Preston Bee [employer]IVE: [address] [facility] [facility] [address], [place], [place] 3 Outreac [id number] h , Ph. Program 2020-05-10 2020-05-10 Outpatient KIKE [facility] 107 [place] 12:37:00 12:37:00 _ANN [id number] [facility] 2020-05-10 2020-05-10 Asha Stephanie [facility] [place] - [id number] [place] 00:00:00 00:00:00 Preston Bee [employer]ATIVE: [address] [facility] [address], [place], [place] 3 Outreac [id number] h , Ph. Program 2020-05-09 2020-05-09 Outpatient Sosa [facility] [id number] - [place] 01:56:00 01:56:00 [id number] [facility] 2020-05-06 2020-05-06 Outpatient BART [facility] [id number] [place] 02:36:00 02:36:00 SSA [id number] [facility] 2020-05-06 2020-05-06 Sophy [place] - [id number] Marilee [facility] 00:00:00 00:00:00 Preston West MD: 1700 [facility] - [facility] [address], [place], [place] Outreac [phone] h , Ph. Program 2020-04-05 2020-04-05 Outpatient MAFFET, [facility] [id number] [place] 00:00:00 00:00:00 KHADIJAH [address] 2020-03-15 2020-03-15 Outpatient MAFFET, [facility] [id number] [place] 00:00:00 00:00:00 KHADIJAH [address] 2020-03-15 2020-03-15 Outpatient MAFFET, [facility] [id number] [place] 00:00:00 00:00:00 KHADIJAH [address] 2020-03-07 2020-03-07 Outpatient KEFFER_A [facility] [id number] [place] 05:54:00 05:54:00 104 [facility] 2020-03-03 2020-03-03 Outpatient KEFFER_A [facility] [id number] [place] 08:30:00 08:30:00 231 [facility] Results Test Description Test Time Test Comments Results Result Comments Source Glucose [Mass/volume] in Capillary blood 2021-01-03 11:37:41 Test Item Value Reference Range Interpretation Comme nts Blood Glucose: mg/dl (test code = Blood Glucose: mg/dl) 135 [place] [facility] ProgramGlucose [Mass/volume] in Capillary [id number] 11:37:41 Test Item Value Reference Range Interpretation Comments Blood Glucose: mg/dl (test code = Blood 135 Glucose: mg/dl) [facility] Program[facility] [Mass/volume] in Capillary [id number] 11:37:41 Test Item Value Reference Range Interpretation Comments Blood Glucose: mg/dl (test code = Blood 135 Glucose: mg/dl) [facility] - Serum or [id number] 00:00:00 Test Item Value Reference Range Interpretation Comments Glucose [Mass/volume] in Serum 126 mg/dL 65-99 H or Plasma (test code = 2345-7) Urea nitrogen [Mass/volume] in 15 mg/dL 8-27 Serum or Plasma (test code = 3094-0) Creatinine [Mass/volume] in 0.81 mg/dL 0.57-1.00 Serum or Plasma (test code = 2160-0) Glomerular filtration 72 mL/min/1.73 >59 rate/1.73 sq M.predicted among non-blacks [Volume Rate/Area] in Serum, Plasma or Blood by Creatinine-based formula (CKD-EPI) (test code = 54850-4) Glomerular filtration 83 mL/min/1.73 >59 rate/1.73 sq M.predicted among blacks [Volume Rate/Area] in Serum, Plasma or Blood by Creatinine-based formula (CKD-EPI) (test code = 70086-6) Urea nitrogen/Creatinine [Mass 19 12-28 Ratio] in Serum or Plasma (test code = 3097-3) Sodium [Moles/volume] in Serum 141 mmol/L 134-144 or Plasma (test code = 2951-2) Potassium [Moles/volume] in 4.7 mmol/L 3.5-5.2 Serum or Plasma (test code = 2823-3) Chloride [Moles/volume] in 99 mmol/L 96-106 Serum or Plasma (test code = 2075-0) Carbon dioxide, total 22 mmol/L 20-29 [Moles/volume] in Serum or Plasma (test code = 2027-9) Calcium [Mass/volume] in Serum 10.7 mg/dL 8.7-10.3 H or Plasma (test code = 18077-9) Protein [Mass/volume] in Serum 7.9 g/dL 6.0-8.5 or Plasma (test code = 2885-2) Albumin [Mass/volume] in Serum 4.8 g/dL 3.7-4.7 H or Plasma (test code = 1751-7) Globulin [Mass/volume] in 3.1 g/dL 1.5-4.5 Serum by calculation (test code = 76904-1) Albumin/Globulin [Mass Ratio] 1.5 1.2-2.2 in Serum or Plasma (test code = 1759-0) Bilirubin.total [Mass/volume] 0.4 mg/dL 0.0-1.2 in Serum or Plasma (test code = 1975-2) Alkaline phosphatase 70 IU/L 44-121 [Enzymatic activity/volume] in Serum or Plasma (test code = 6768-6) Aspartate aminotransferase 32 IU/L 0-40 [Enzymatic activity/volume] in Serum or Plasma (test code = 1920-8) Alanine aminotransferase 31 IU/L 0-32 [Enzymatic activity/volume] in Serum or Plasma (test code = 1742-6) [facility]Hemoglobin.total in [id number] 00:00:00 Test Item Value Reference Range Interpretation Comments Hemoglobin A1c/Hemoglobin.total in 6.8 % 4.8-5.6 H Blood (test code = 4548-4) Glucose mean value [Mass/volume] in 148 mg/dL Blood Estimated from glycated hemoglobin (test code = 59518-9) [facility] [id number] 00:00:00 Test Item Value Reference Range Interpretation Comments pdf (test code = pdf) . [facility] 2000 panel - Serum or [id number] 00:00:00 Test Item Value Reference Range Interpretation Comments Glucose [Mass/volume] in Serum 126 mg/dL 65-99 H or Plasma (test code = 2345-7) Urea nitrogen [Mass/volume] in 15 mg/dL 8-27 Serum or Plasma (test code = 3094-0) Creatinine [Mass/volume] in 0.81 mg/dL 0.57-1.00 Serum or Plasma (test code = 2160-0) Glomerular filtration 72 mL/min/1.73 >59 rate/1.73 sq M.predicted among non-blacks [Volume Rate/Area] in Serum, Plasma or Blood by Creatinine-based formula (CKD-EPI) (test code = 69057-1) Glomerular filtration 83 mL/min/1.73 >59 rate/1.73 sq M.predicted among blacks [Volume Rate/Area] in Serum, Plasma or Blood by Creatinine-based formula (CKD-EPI) (test code = 08002-6) Urea nitrogen/Creatinine [Mass 19 12-28 Ratio] in Serum or Plasma (test code = 3097-3) Sodium [Moles/volume] in Serum 141 mmol/L 134-144 or Plasma (test code = 2951-2) Potassium [Moles/volume] in 4.7 mmol/L 3.5-5.2 Serum or Plasma (test code = 2823-3) Chloride [Moles/volume] in 99 mmol/L 96-106 Serum or Plasma (test code = 2075-0) Carbon dioxide, total 22 mmol/L 20-29 [Moles/volume] in Serum or Plasma (test code = 2027-9) Calcium [Mass/volume] in Serum 10.7 mg/dL 8.7-10.3 H or Plasma (test code = 41921-2) Protein [Mass/volume] in Serum 7.9 g/dL 6.0-8.5 or Plasma (test code = 2885-2) Albumin [Mass/volume] in Serum 4.8 g/dL 3.7-4.7 H or Plasma (test code = 1751-7) Globulin [Mass/volume] in 3.1 g/dL 1.5-4.5 Serum by calculation (test code = 18667-0) Albumin/Globulin [Mass Ratio] 1.5 1.2-2.2 in Serum or Plasma (test code = 1759-0) Bilirubin.total [Mass/volume] 0.4 mg/dL 0.0-1.2 in Serum or Plasma (test code = 1974-2) Alkaline phosphatase 70 IU/L 44-121 [Enzymatic activity/volume] in Serum or Plasma (test code = 6768-6) Aspartate aminotransferase 32 IU/L 0-40 [Enzymatic activity/volume] in Serum or Plasma (test code = 1920-8) Alanine aminotransferase 31 IU/L 0-32 [Enzymatic activity/volume] in Serum or Plasma (test code = 1742-6) [facility]/Hemoglobin.total in [id number] 00:00:00 Test Item Value Reference Range Interpretation Comments Hemoglobin A1c/Hemoglobin.total in 6.8 % 4.8-5.6 H Blood (test code = 4548-4) Glucose mean value [Mass/volume] in 148 mg/dL Blood Estimated from glycated hemoglobin (test code = 64769-2) [facility] [id number] 00:00:00 Test Item Value Reference Range Interpretation Comments pdf (test code = pdf) . [facility] 2000 panel - Serum or [id number] 00:00:00 Test Item Value Reference Range Interpretation Comments Glucose [Mass/volume] in Serum 126 mg/dL 65-99 H or Plasma (test code = 2345-7) Urea nitrogen [Mass/volume] in 15 mg/dL 8-27 Serum or Plasma (test code = 3094-0) Creatinine [Mass/volume] in 0.81 mg/dL 0.57-1.00 Serum or Plasma (test code = 2160-0) Glomerular filtration 72 mL/min/1.73 >59 rate/1.73 sq M.predicted among non-blacks [Volume Rate/Area] in Serum, Plasma or Blood by Creatinine-based formula (CKD-EPI) (test code = 16744-5) Glomerular filtration 83 mL/min/1.73 >59 rate/1.73 sq M.predicted among blacks [Volume Rate/Area] in Serum, Plasma or Blood by Creatinine-based formula (CKD-EPI) (test code = 58259-3) Urea nitrogen/Creatinine [Mass 19 12-28 Ratio] in Serum or Plasma (test code = 3097-3) Sodium [Moles/volume] in Serum 141 mmol/L 134-144 or Plasma (test code = 2951-2) Potassium [Moles/volume] in 4.7 mmol/L 3.5-5.2 Serum or Plasma (test code = 2823-3) Chloride [Moles/volume] in 99 mmol/L 96-106 Serum or Plasma (test code = 2075-0) Carbon dioxide, total 22 mmol/L 20-29 [Moles/volume] in Serum or Plasma (test code = 2027-9) Calcium [Mass/volume] in Serum 10.7 mg/dL 8.7-10.3 H or Plasma (test code = 06536-1) Protein [Mass/volume] in Serum 7.9 g/dL 6.0-8.5 or Plasma (test code = 2885-2) Albumin [Mass/volume] in Serum 4.8 g/dL 3.7-4.7 H or Plasma (test code = 1751-7) Globulin [Mass/volume] in 3.1 g/dL 1.5-4.5 Serum by calculation (test code = 63155-8) Albumin/Globulin [Mass Ratio] 1.5 1.2-2.2 in Serum or Plasma (test code = 1759-0) Bilirubin.total [Mass/volume] 0.4 mg/dL 0.0-1.2 in Serum or Plasma (test code = 1975-2) Alkaline phosphatase 70 IU/L 44-121 [Enzymatic activity/volume] in Serum or Plasma (test code = 6768-6) Aspartate aminotransferase 32 IU/L 0-40 [Enzymatic activity/volume] in Serum or Plasma (test code = 1920-8) Alanine aminotransferase 31 IU/L 0-32 [Enzymatic activity/volume] in Serum or Plasma (test code = 1742-6) [facility]/Hemoglobin.total in [id number] 00:00:00 Test Item Value Reference Range Interpretation Comments Hemoglobin A1c/Hemoglobin.total in 6.8 % 4.8-5.6 H Blood (test code = 4548-4) Glucose mean value [Mass/volume] in 148 mg/dL Blood Estimated from glycated hemoglobin (test code = 26756-9) [facility] [id number] 00:00:00 Test Item Value Reference Range Interpretation Comments pdf (test code = pdf) . [facility] 2000 [facility] - Serum or [id number] 00:00:00 Test Item Value Reference Range Interpretation Comments Glucose [Mass/volume] in Serum 165 mg/dL 65-99 H or Plasma (test code = 2345-7) Urea nitrogen [Mass/volume] in 17 mg/dL 8-27 Serum or Plasma (test code = 3094-0) Creatinine [Mass/volume] in 0.86 mg/dL 0.57-1.00 Serum or Plasma (test code = 2160-0) Glomerular filtration 67 mL/min/1.73 >59 rate/1.73 sq M.predicted among non-blacks [Volume Rate/Area] in Serum, Plasma or Blood by Creatinine-based formula (CKD-EPI) (test code = 84329-0) Glomerular filtration 78 mL/min/1.73 >59 rate/1.73 sq M.predicted among blacks [Volume Rate/Area] in Serum, Plasma or Blood by Creatinine-based formula (CKD-EPI) (test code = 12431-1) Urea nitrogen/Creatinine [Mass 20 12-28 Ratio] in Serum or Plasma (test code = 3097-3) Sodium [Moles/volume] in Serum 137 mmol/L 134-144 or Plasma (test code = 2951-2) Potassium [Moles/volume] in 4.7 mmol/L 3.5-5.2 Serum or Plasma (test code = 2823-3) Chloride [Moles/volume] in 100 mmol/L 96-106 Serum or Plasma (test code = 2075-0) Carbon dioxide, total 21 mmol/L 20-29 [Moles/volume] in Serum or Plasma (test code = 2027-9) Calcium [Mass/volume] in Serum 10.9 mg/dL 8.7-10.3 H or Plasma (test code = 77142-2) Protein [Mass/volume] in Serum 8.1 g/dL 6.0-8.5 or Plasma (test code = 2885-2) Albumin [Mass/volume] in Serum 4.7 g/dL 3.7-4.7 or Plasma (test code = 1751-7) Globulin [Mass/volume] in 3.4 g/dL 1.5-4.5 Serum by calculation (test code = 81305-5) Albumin/Globulin [Mass Ratio] 1.4 1.2-2.2 in Serum or Plasma (test code = 1759-0) Bilirubin.total [Mass/volume] 0.4 mg/dL 0.0-1.2 in Serum or Plasma (test code = 1974-) Alkaline phosphatase 92 IU/L 48-121 [Enzymatic activity/volume] in Serum or Plasma (test code = 6768-6) Aspartate aminotransferase 37 IU/L 0-40 [Enzymatic activity/volume] in Serum or Plasma (test code = 1920-8) Alanine aminotransferase 49 IU/L 0-32 H [Enzymatic activity/volume] in Serum or Plasma (test code = 1742-6) [facility] HospitalHemoglobin A1c/Hemoglobin.total in [id number] 00:00:00 Test Item Value Reference Range Interpretation Comments Hemoglobin A1c/Hemoglobin.total in 9.2 % 4.8-5.6 H Blood (test code = 4548-4) Glucose mean value [Mass/volume] in 217 mg/dL Blood Estimated from glycated hemoglobin (test code = 37359-9) [facility] [id number] 00:00:00 Test Item Value Reference Range Interpretation Comments pdf (test code = pdf) . [facility] HospitalAc[facility] 1999 [facility] - Serum 2020-05-19 00:00:00 Test Item Value Reference Range Interpretation Comments Hepatitis A virus IgM Ab [Presence] negative negative in Serum or Plasma by Immunoassay (test code = 93915-4) Hepatitis B virus surface Ag negative negative [Presence] in Serum or Plasma by Immunoassay (test code = 5196-1) Hepatitis B virus core IgM Ab negative negative [Presence] in Serum or Plasma by Immunoassay (test code = 03490-1) Hepatitis C virus Ab Signal/Cutoff <0.1 0.0-0.9 in Serum or Plasma by Immunoassay (test code = 96534-3) [facility]Ac[facility] 2000 [facility] - Serum 2020-05-19 00:00:00 Test Item Value Reference Range Interpretation Comments Hepatitis A virus IgM Ab [Presence] negative negative in Serum or Plasma by Immunoassay (test code = 62376-0) Hepatitis B virus surface Ag negative negative [Presence] in Serum or Plasma by Immunoassay (test code = 5196-1) Hepatitis B virus core IgM Ab negative negative [Presence] in Serum or Plasma by Immunoassay (test code = 20509-4) Hepatitis C virus Ab Signal/Cutoff <0.1 0.0-0.9 in Serum or Plasma by Immunoassay (test code = 38942-0) [facility] 2000 [facility] - Serum 2020-05-19 00:00:00 Test Item Value Reference Range Interpretation Comments Hepatitis A virus IgM Ab [Presence] negative negative in Serum or Plasma by Immunoassay (test code = 50816-3) Hepatitis B virus surface Ag negative negative [Presence] in Serum or Plasma by Immunoassay (test code = 5196-1) Hepatitis B virus core IgM Ab negative negative [Presence] in Serum or Plasma by Immunoassay (test code = 67840-6) Hepatitis C virus Ab Signal/Cutoff <0.1 0.0-0.9 in Serum or Plasma by Immunoassay (test code = 56945-9) [facility], [id number] 00:00:00 Test Item Value Reference Range Interpretation Comments Interpretation and review of laboratory note results (test code = 73506-4) Report (test code = 65701-5) . [facility] patient [id number] 00:00:00 Test Item Value Reference Range Interpretation Comments pdf (test code = pdf) not applicable [facility], [id number] 00:00:00 Test Item Value Reference Range Interpretation Comments Interpretation and review of laboratory note results (test code = 36914-0) Report (test code = 15021-3) . [facility] [id number] 00:00:00 Test Item Value Reference Range Interpretation Comments pdf (test code = pdf) not applicable [facility], [id number] 00:00:00 Test Item Value Reference Range Interpretation Comments Interpretation and review of laboratory note results (test code = 52173-7) Report (test code = 61899-7) . [facility] patient [id number] 00:00:00 Test Item Value Reference Range Interpretation Comments pdf (test code = pdf) not applicable [facility] HospitalLipid 1996 panel - Serum or Plasma 2020-05-11 00:00:00 Test Item Value Reference Range Interpretation Comments Cholesterol [Mass/volume] in Serum 170 mg/dL 100-199 or Plasma (test code = 2093-3) Triglyceride [Mass/volume] in Serum 337 mg/dL 0-149 H or Plasma (test code = 2571-8) Cholesterol in HDL [Mass/volume] in 37 mg/dL >39 L Serum or Plasma (test code = 2085-9) Cholesterol in VLDL [Mass/volume] 54 mg/dL 5-40 H in Serum or Plasma by calculation (test code = 82912-1) Cholesterol in LDL [Mass/volume] in 79 mg/dL 0-99 Serum or Plasma by calculation (test code = 11069-2) Laboratory comment [Text] in Report produce service team member Narrative (test code = 58789-0) [facility]Mass Ratio] in [id number] 00:00:00 Test Item Value Reference Range Interpretation Comments Creatinine [Mass/volume] in 145.6 mg/dL not estab. Urine (test code = 2161-8) Microalbumin [Mass/volume] in 19.8 ug/mL not estab. Urine (test code = 17719-5) Albumin/Creatinine [Mass ratio] 14 mg/g creat 0-29 in Urine (test code = 9318-7) [facility] HospitalHemoglobin A1c/Hemoglobin.total in [id number] 00:00:00 Test Item Value Reference Range Interpretation Comments Hemoglobin A1c/Hemoglobin.total in 9.2 % 4.8-5.6 H Blood (test code = 4548-4) Glucose mean value [Mass/volume] in 217 mg/dL Blood Estimated from glycated hemoglobin (test code = 19512-6) [facility] HospitalFree T4 and TSH panel - Serum or [id number] 00:00:00 Test Item Value Reference Range Interpretation Comments Thyrotropin [Units/volume] in 1.990 uIU/mL 0.450-4.500 Serum or Plasma by Detection limit <= 0.005 mIU/L (test code = 59785-4) Thyroxine (T4) free 1.45 NG/dL 0.82-1.77 [Mass/volume] in Serum or Plasma (test code = 3024-7) [facility] HospitalCBC W Auto Differential panel - Blood 2020-05-11 00:00:00 Test Item Value Reference Range Interpretation Comments Leukocytes [#/volume] in Blood 8.4 x10e3/uL 3.4-10.8 by Automated count (test code = 6690-2) Erythrocytes [#/volume] in 4.39 x10e6/uL 3.77-5.28 Blood by Automated count (test code = 789-8) Hemoglobin [Mass/volume] in 13.9 g/dL 11.1-15.9 Blood (test code = 718-7) Hematocrit [Volume Fraction] of 40.6 % 34.0-46.6 Blood by Automated count (test code = 4544-3) MCV [Entitic volume] by 93 fL 79-97 Automated count (test code = 787-2) MCH [Entitic mass] by Automated 31.7 pg 26.6-33.0 count (test code = 785-6) MCHC [Mass/volume] by Automated 34.2 g/dL 31.5-35.7 count (test code = 786-4) Erythrocyte distribution width 12.1 % 11.7-15.4 [Ratio] by Automated count (test code = 788-0) Platelets [#/volume] in Blood 258 x10e3/uL 150-450 by Automated count (test code = 777-3) Neutrophils/100 leukocytes in 47 % not estab. Blood by Automated count (test code = 770-8) Lymphocytes/100 leukocytes in 44 % not estab. Blood by Automated count (test code = 736-9) Monocytes/100 leukocytes in 7 % not estab. Blood by Automated count (test code = 5905-5) Eosinophils/100 leukocytes in 1 % not estab. Blood by Automated count (test code = 713-8) Basophils/100 leukocytes in 1 % not estab. Blood by Automated count (test code = 706-2) immature cells (test code = produce service team member immature cells) Neutrophils [#/volume] in Blood 4.0 x10e3/uL 1.4-7.0 by Automated count (test code = 751-8) Lymphocytes [#/volume] in Blood 3.7 x10e3/uL 0.7-3.1 H by Automated count (test code = 731-0) Monocytes [#/volume] in Blood 0.6 x10e3/uL 0.1-0.9 by Automated count (test code = 742-7) Eosinophils [#/volume] in Blood 0.1 x10e3/uL 0.0-0.4 by Automated count (test code = 711-2) Basophils [#/volume] in Blood 0.0 x10e3/uL 0.0-0.2 by Automated count (test code = 704-7) Immature granulocytes/100 0 % not estab. leukocytes in Blood by Automated count (test code = 65428-3) Immature granulocytes 0.0 x10e3/uL 0.0-0.1 [#/volume] in Blood by Automated count (test code = 73550-4) Nucleated erythrocytes/100 produce service team member leukocytes [Ratio] in Blood by Automated count (test code = 54473-2) Morphology [Interpretation] in produce service team member Blood Narrative (test code = 76997-1) [facility] HospitalCom[facility] 2000 [facility] - Serum or [id number] 00:00:00 Test Item Value Reference Range Interpretation Comments Glucose [Mass/volume] in Serum 236 mg/dL 65-99 H or Plasma (test code = 2345-7) Urea nitrogen [Mass/volume] in 20 mg/dL 8-27 Serum or Plasma (test code = 3094-0) Creatinine [Mass/volume] in 0.90 mg/dL 0.57-1.00 Serum or Plasma (test code = 2160-0) Glomerular filtration 64 mL/min/1.73 >59 rate/1.73 sq M.predicted among non-blacks [Volume Rate/Area] in Serum, Plasma or Blood by Creatinine-based formula (CKD-EPI) (test code = 52839-2) Glomerular filtration 74 mL/min/1.73 >59 rate/1.73 sq M.predicted among blacks [Volume Rate/Area] in Serum, Plasma or Blood by Creatinine-based formula (CKD-EPI) (test code = 42960-5) Urea nitrogen/Creatinine [Mass 22 12-28 Ratio] in Serum or Plasma (test code = 3097-3) Sodium [Moles/volume] in Serum 136 mmol/L 134-144 or Plasma (test code = 2951-2) Potassium [Moles/volume] in 4.5 mmol/L 3.5-5.2 Serum or Plasma (test code = 2823-3) Chloride [Moles/volume] in 101 mmol/L 96-106 Serum or Plasma (test code = 2075-0) Carbon dioxide, total 18 mmol/L 20-29 L [Moles/volume] in Serum or Plasma (test code = 2027-) Calcium [Mass/volume] in Serum 11.1 mg/dL 8.7-10.3 H or Plasma (test code = 16964-6) Protein [Mass/volume] in Serum 7.8 g/dL 6.0-8.5 or Plasma (test code = 2885-2) Albumin [Mass/volume] in Serum 4.7 g/dL 3.7-4.7 or Plasma (test code = 1751-7) Globulin [Mass/volume] in 3.1 g/dL 1.5-4.5 Serum by calculation (test code = 55476-1) Albumin/Globulin [Mass Ratio] 1.5 1.2-2.2 in Serum or Plasma (test code = 1759-0) Bilirubin.total [Mass/volume] 0.4 mg/dL 0.0-1.2 in Serum or Plasma (test code = 1974-) Alkaline phosphatase 89 IU/L 39-117 [Enzymatic activity/volume] in Serum or Plasma (test code = 6768-6) Aspartate aminotransferase 80 IU/L 0-40 H [Enzymatic activity/volume] in Serum or Plasma (test code = 1920-8) Alanine aminotransferase 113 IU/L 0-32 H [Enzymatic activity/volume] in Serum or Plasma (test code = 1742-6) [facility] HospitalLipid 1996 [facility] - Serum or Plasma 2020-05-11 00:00:00 Test Item Value Reference Range Interpretation Comments Cholesterol [Mass/volume] in Serum 170 mg/dL 100-199 or Plasma (test code = 2093-3) Triglyceride [Mass/volume] in Serum 337 mg/dL 0-149 H or Plasma (test code = 2571-8) Cholesterol in HDL [Mass/volume] in 37 mg/dL >39 L Serum or Plasma (test code = 2085-9) Cholesterol in VLDL [Mass/volume] 54 mg/dL 5-40 H in Serum or Plasma by calculation (test code = 87407-8) Cholesterol in LDL [Mass/volume] in 79 mg/dL 0-99 Serum or Plasma by calculation (test code = 65381-0) Laboratory comment [Text] in Report produce service team member Narrative (test code = 97552-3) [facility]inine [Mass Ratio] in [id number] 00:00:00 Test Item Value Reference Range Interpretation Comments Creatinine [Mass/volume] in 145.6 mg/dL not estab. Urine (test code = 2161-8) Microalbumin [Mass/volume] in 19.8 ug/mL not estab. Urine (test code = 90503-1) Albumin/Creatinine [Mass ratio] 14 mg/g creat 0-29 in Urine (test code = 9318-7) [facility] HospitalHemoglobin A1c/Hemoglobin.total in [id number] 00:00:00 Test Item Value Reference Range Interpretation Comments Hemoglobin A1c/Hemoglobin.total in 9.2 % 4.8-5.6 H Blood (test code = 4548-4) Glucose mean value [Mass/volume] in 217 mg/dL Blood Estimated from glycated hemoglobin (test code = 27293-8) [facility] HospitalFree T4 and TSH panel - Serum or [id number] 00:00:00 Test Item Value Reference Range Interpretation Comments Thyrotropin [Units/volume] in 1.990 uIU/mL 0.450-4.500 Serum or Plasma by Detection limit <= 0.005 mIU/L (test code = 48137-3) Thyroxine (T4) free 1.45 NG/dL 0.82-1.77 [Mass/volume] in Serum or Plasma (test code = 3024-7) [facility] HospitalCBC W Auto Differential panel - Blood 2020-05-11 00:00:00 Test Item Value Reference Range Interpretation Comments Leukocytes [#/volume] in Blood 8.4 x10e3/uL 3.4-10.8 by Automated count (test code = 6690-2) Erythrocytes [#/volume] in 4.39 x10e6/uL 3.77-5.28 Blood by Automated count (test code = 789-8) Hemoglobin [Mass/volume] in 13.9 g/dL 11.1-15.9 Blood (test code = 718-7) Hematocrit [Volume Fraction] of 40.6 % 34.0-46.6 Blood by Automated count (test code = 4544-3) MCV [Entitic volume] by 93 fL 79-97 Automated count (test code = 787-2) MCH [Entitic mass] by Automated 31.7 pg 26.6-33.0 count (test code = 785-6) MCHC [Mass/volume] by Automated 34.2 g/dL 31.5-35.7 count (test code = 786-4) Erythrocyte distribution width 12.1 % 11.7-15.4 [Ratio] by Automated count (test code = 788-0) Platelets [#/volume] in Blood 258 x10e3/uL 150-450 by Automated count (test code = 777-3) Neutrophils/100 leukocytes in 47 % not estab. Blood by Automated count (test code = 770-8) Lymphocytes/100 leukocytes in 44 % not estab. Blood by Automated count (test code = 736-9) Monocytes/100 leukocytes in 7 % not estab. Blood by Automated count (test code = 5905-5) Eosinophils/100 leukocytes in 1 % not estab. Blood by Automated count (test code = 713-8) Basophils/100 leukocytes in 1 % not estab. Blood by Automated count (test code = 706-2) immature cells (test code = produce service team member immature cells) Neutrophils [#/volume] in Blood 4.0 x10e3/uL 1.4-7.0 by Automated count (test code = 751-8) Lymphocytes [#/volume] in Blood 3.7 x10e3/uL 0.7-3.1 H by Automated count (test code = 731-0) Monocytes [#/volume] in Blood 0.6 x10e3/uL 0.1-0.9 by Automated count (test code = 742-7) Eosinophils [#/volume] in Blood 0.1 x10e3/uL 0.0-0.4 by Automated count (test code = 711-2) Basophils [#/volume] in Blood 0.0 x10e3/uL 0.0-0.2 by Automated count (test code = 704-7) Immature granulocytes/100 0 % not estab. leukocytes in Blood by Automated count (test code = 67680-1) Immature granulocytes 0.0 x10e3/uL 0.0-0.1 [#/volume] in Blood by Automated count (test code = 02300-6) Nucleated erythrocytes/100 produce service team member leukocytes [Ratio] in Blood by Automated count (test code = 85908-8) Morphology [Interpretation] in produce service team member Blood Narrative (test code = 60609-7) [facility] HospitalCom[facility] 2000 [facility] - Serum or [id number] 00:00:00 Test Item Value Reference Range Interpretation Comments Glucose [Mass/volume] in Serum 236 mg/dL 65-99 H or Plasma (test code = 2345-7) Urea nitrogen [Mass/volume] in 20 mg/dL 8-27 Serum or Plasma (test code = 3094-0) Creatinine [Mass/volume] in 0.90 mg/dL 0.57-1.00 Serum or Plasma (test code = 2160-0) Glomerular filtration 64 mL/min/1.73 >59 rate/1.73 sq M.predicted among non-blacks [Volume Rate/Area] in Serum, Plasma or Blood by Creatinine-based formula (CKD-EPI) (test code = 28874-7) Glomerular filtration 74 mL/min/1.73 >59 rate/1.73 sq M.predicted among blacks [Volume Rate/Area] in Serum, Plasma or Blood by Creatinine-based formula (CKD-EPI) (test code = 01064-5) Urea nitrogen/Creatinine [Mass 22 12-28 Ratio] in Serum or Plasma (test code = 3097-3) Sodium [Moles/volume] in Serum 136 mmol/L 134-144 or Plasma (test code = 2951-2) Potassium [Moles/volume] in 4.5 mmol/L 3.5-5.2 Serum or Plasma (test code = 2823-3) Chloride [Moles/volume] in 101 mmol/L 96-106 Serum or Plasma (test code = 2075-0) Carbon dioxide, total 18 mmol/L 20-29 L [Moles/volume] in Serum or Plasma (test code = 2027-9) Calcium [Mass/volume] in Serum 11.1 mg/dL 8.7-10.3 H or Plasma (test code = 93808-0) Protein [Mass/volume] in Serum 7.8 g/dL 6.0-8.5 or Plasma (test code = 2885-2) Albumin [Mass/volume] in Serum 4.7 g/dL 3.7-4.7 or Plasma (test code = 1751-7) Globulin [Mass/volume] in 3.1 g/dL 1.5-4.5 Serum by calculation (test code = 71190-5) Albumin/Globulin [Mass Ratio] 1.5 1.2-2.2 in Serum or Plasma (test code = 1759-0) Bilirubin.total [Mass/volume] 0.4 mg/dL 0.0-1.2 in Serum or Plasma (test code = 1975-2) Alkaline phosphatase 89 IU/L 39-117 [Enzymatic activity/volume] in Serum or Plasma (test code = 6768-6) Aspartate aminotransferase 80 IU/L 0-40 H [Enzymatic activity/volume] in Serum or Plasma (test code = 1920-8) Alanine aminotransferase 113 IU/L 0-32 H [Enzymatic activity/volume] in Serum or Plasma (test code = 1742-6) [facility] - [facility] or Plasma 2020-05-11 00:00:00 Test Item Value Reference Range Interpretation Comments Cholesterol [Mass/volume] in Serum 170 mg/dL 100-199 or Plasma (test code = 2093-3) Triglyceride [Mass/volume] in Serum 337 mg/dL 0-149 H or Plasma (test code = 2571-8) Cholesterol in HDL [Mass/volume] in 37 mg/dL >39 L Serum or Plasma (test code = 2085-9) Cholesterol in VLDL [Mass/volume] 54 mg/dL 5-40 H in Serum or Plasma by calculation (test code = 69092-6) Cholesterol in LDL [Mass/volume] in 79 mg/dL 0-99 Serum or Plasma by calculation (test code = 73348-8) Laboratory comment [Text] in Report produce service team member Narrative (test code = 96978-1) [facility] ProgramMicro[facility]/Creatinine [Mass Ratio] in [id number] 00:00:00 Test Item Value Reference Range Interpretation Comments Creatinine [Mass/volume] in 145.6 mg/dL not estab. Urine (test code = 2161-8) Microalbumin [Mass/volume] in 19.8 ug/mL not estab. Urine (test code = 57856-6) Albumin/Creatinine [Mass ratio] 14 mg/g creat 0-29 in Urine (test code = 9318-7) [facility] HospitalHemoglobin A1c/Hemoglobin.total in [id number] 00:00:00 Test Item Value Reference Range Interpretation Comments Hemoglobin A1c/Hemoglobin.total in 9.2 % 4.8-5.6 H Blood (test code = 4548-4) Glucose mean value [Mass/volume] in 217 mg/dL Blood Estimated from glycated hemoglobin (test code = 73971-3) [facility] HospitalFree T4 and TSH panel - Serum or [id number] 00:00:00 Test Item Value Reference Range Interpretation Comments Thyrotropin [Units/volume] in 1.990 uIU/mL 0.450-4.500 Serum or Plasma by Detection limit <= 0.005 mIU/L (test code = 78999-0) Thyroxine (T4) free 1.45 NG/dL 0.82-1.77 [Mass/volume] in Serum or Plasma (test code = 3024-7) [facility] HospitalCBC W Auto Differential panel - Blood 2020-05-11 00:00:00 Test Item Value Reference Range Interpretation Comments Leukocytes [#/volume] in Blood 8.4 x10e3/uL 3.4-10.8 by Automated count (test code = 6690-2) Erythrocytes [#/volume] in 4.39 x10e6/uL 3.77-5.28 Blood by Automated count (test code = 789-8) Hemoglobin [Mass/volume] in 13.9 g/dL 11.1-15.9 Blood (test code = 718-7) Hematocrit [Volume Fraction] of 40.6 % 34.0-46.6 Blood by Automated count (test code = 4544-3) MCV [Entitic volume] by 93 fL 79-97 Automated count (test code = 787-2) MCH [Entitic mass] by Automated 31.7 pg 26.6-33.0 count (test code = 785-6) MCHC [Mass/volume] by Automated 34.2 g/dL 31.5-35.7 count (test code = 786-4) Erythrocyte distribution width 12.1 % 11.7-15.4 [Ratio] by Automated count (test code = 788-0) Platelets [#/volume] in Blood 258 x10e3/uL 150-450 by Automated count (test code = 777-3) Neutrophils/100 leukocytes in 47 % not estab. Blood by Automated count (test code = 770-8) Lymphocytes/100 leukocytes in 44 % not estab. Blood by Automated count (test code = 736-9) Monocytes/100 leukocytes in 7 % not estab. Blood by Automated count (test code = 5905-5) Eosinophils/100 leukocytes in 1 % not estab. Blood by Automated count (test code = 713-8) Basophils/100 leukocytes in 1 % not estab. Blood by Automated count (test code = 706-2) immature cells (test code = produce service team member immature cells) Neutrophils [#/volume] in Blood 4.0 x10e3/uL 1.4-7.0 by Automated count (test code = 751-8) Lymphocytes [#/volume] in Blood 3.7 x10e3/uL 0.7-3.1 H by Automated count (test code = 731-0) Monocytes [#/volume] in Blood 0.6 x10e3/uL 0.1-0.9 by Automated count (test code = 742-7) Eosinophils [#/volume] in Blood 0.1 x10e3/uL 0.0-0.4 by Automated count (test code = 711-2) Basophils [#/volume] in Blood 0.0 x10e3/uL 0.0-0.2 by Automated count (test code = 704-7) Immature granulocytes/100 0 % not estab. leukocytes in Blood by Automated count (test code = 20382-7) Immature granulocytes 0.0 x10e3/uL 0.0-0.1 [#/volume] in Blood by Automated count (test code = 68401-9) Nucleated erythrocytes/100 produce service team member leukocytes [Ratio] in Blood by Automated count (test code = 15832-5) Morphology [Interpretation] in produce service team member Blood Narrative (test code = 19000-4) [facility] ProgramCom[facility] 2000 panel - Serum or [id number] 00:00:00 Test Item Value Reference Range Interpretation Comments Glucose [Mass/volume] in Serum 236 mg/dL 65-99 H or Plasma (test code = 2345-7) Urea nitrogen [Mass/volume] in 20 mg/dL 8-27 Serum or Plasma (test code = 3094-0) Creatinine [Mass/volume] in 0.90 mg/dL 0.57-1.00 Serum or Plasma (test code = 2160-0) Glomerular filtration 64 mL/min/1.73 >59 rate/1.73 sq M.predicted among non-blacks [Volume Rate/Area] in Serum, Plasma or Blood by Creatinine-based formula (CKD-EPI) (test code = 82836-5) Glomerular filtration 74 mL/min/1.73 >59 rate/1.73 sq M.predicted among blacks [Volume Rate/Area] in Serum, Plasma or Blood by Creatinine-based formula (CKD-EPI) (test code = 21138-4) Urea nitrogen/Creatinine [Mass 22 12-28 Ratio] in Serum or Plasma (test code = 3097-3) Sodium [Moles/volume] in Serum 136 mmol/L 134-144 or Plasma (test code = 2951-2) Potassium [Moles/volume] in 4.5 mmol/L 3.5-5.2 Serum or Plasma (test code = 2823-3) Chloride [Moles/volume] in 101 mmol/L 96-106 Serum or Plasma (test code = 2075-0) Carbon dioxide, total 18 mmol/L 20-29 L [Moles/volume] in Serum or Plasma (test code = 2027-9) Calcium [Mass/volume] in Serum 11.1 mg/dL 8.7-10.3 H or Plasma (test code = 00430-6) Protein [Mass/volume] in Serum 7.8 g/dL 6.0-8.5 or Plasma (test code = 2885-2) Albumin [Mass/volume] in Serum 4.7 g/dL 3.7-4.7 or Plasma (test code = 1751-7) Globulin [Mass/volume] in 3.1 g/dL 1.5-4.5 Serum by calculation (test code = 17695-2) Albumin/Globulin [Mass Ratio] 1.5 1.2-2.2 in Serum or Plasma (test code = 1759-0) Bilirubin.total [Mass/volume] 0.4 mg/dL 0.0-1.2 in Serum or Plasma (test code = 1975-2) Alkaline phosphatase 89 IU/L 39-117 [Enzymatic activity/volume] in Serum or Plasma (test code = 6768-6) Aspartate aminotransferase 80 IU/L 0-40 H [Enzymatic activity/volume] in Serum or Plasma (test code = 1920-8) Alanine aminotransferase 113 IU/L 0-32 H [Enzymatic activity/volume] in Serum or Plasma (test code = 1742-6) [facility] [place] [facility]
[2021-05-12] MEDS ORDERED: TRAMADOL HCL 50 MG TAB ONE (08:24)
[2021-05-12] MEDS ORDERED: IBUPROFEN 200 MG TAB PO ONE (08:24)
--- NOTE | 2021-05-12 09:05 | RAD REPORT ---
EXAM DESCRIPTION: RAD - Ribs Right - 05/12/2021 8:58 am CLINICAL HISTORY: PAIN COMPARISON: Chest Single View dated 05/12/2021 FINDINGS: Possible nondisplaced right tenth lateral rib fracture. Correlate with site of pain. No ot her rib fractures are identified. Heart size is normal. No pneumothorax. IMPRESSION: Possible nondisplaced right lateral tenth rib fracture. No pneumothorax. Correlate with site of pain.
--- NOTE | 2021-05-12 09:06 | RAD REPORT ---
EXAM DESCRIPTION: RAD - Chest Single View - 05/12/2021 8:58 am CLINICAL HISTORY: CHEST PAIN COMPARISON: Abdomen 1 View (KUB) dated 05/16/2016 FINDINGS: Lines: None. Lungs: No evidence of edema or pneumonia. Pleural: No significant pleural effusions or pneumothorax. Cardiac: The heart size is within normal limits. Bones: No acute fractures. Other: IMPRESSION: No acute cardiopulmonary disease.
[2021-05-12 09:41] LABS: SARS-COV-2 RT PCR NEGATIVE (NEGATIVE)
--- NOTE | 2021-05-12 10:20 | ER ---
Nurse's Notes [facility] Name: Maggie Hansen Age: 75 yrs Sex: Female : 1945 Arrival Date: 05/12/2021 Time: 07:44 Bed 1 Private MD: Diagnosis: Fracture of one rib, right side Presentation: 05/12 07:55 Chief complaint: Patient states: Tripped and fell on Saturday, fell onto wood steps, c/o jl7 right rib pain, hit the side of right face. Also, report cough, congestion and SOB with exertion x 1 week. Coronavirus screen: Vaccine status: Patient reports receiving the 2nd dose of the covid vaccine. Moderna Client presents with at least one sign or symptom that may indicate coronavirus-19. Standard/surgical mask placed on the client. Provider contacted for isolation considerations. Ebola Screen: No symptoms or risks identified at this time. Initial Sepsis Screen: Does the patient meet any 2 criteria? No. Patient's initial sepsis screen is negative. Does the patient have a suspected source of infection? No. Patient's initial sepsis screen is negative. Risk Assessment: Do you want to hurt yourself or someone else? Patient reports no desire to harm self or others. Onset of symptoms was May 05, 2021. 07:55 Method Of Arrival: Ambulatory jl7 07:55 Acuity: NETTA 3 jl7 Triage Assessment: 07:57 General: Appears in no apparent distress. uncomfortable, Behavior is calm, cooperative, jl7 appropriate for age. Pain: Complains of pain in right ribs Pain currently is 10 out of 10 on a pain scale. Historical: - Allergies: 07:57 No Known Allergies; jl7 - Home Meds: 07:57 rosuvastatin 5 mg oral cpSP 1 cap once daily [Active]; nifedipine 90 mg Oral TbER 1 tab jl7 once daily [Active]; lisinopril-hydrochlorothiazide 20-12.5 mg Oral tab 1 tab once daily [Active]; Janumet 50-1,000 mg oral tab 1 tab 2 times per day [Active]; Jardiance 25 mg oral tab 1 tab once daily [Active]; glimepiride 4 mg Oral tab 1 tab once daily [Active]; alendronate 35 mg oral tab 1 tab once wkly [Active]; - PMHx: 07:57 Diabetes - NIDDM; Diverticulitis; Hypertension; Diabetes mellitus; Hypertensive jl7 disorder; Osteoporosis; Hypercholesterolemia; - Immunization history:: Adult Immunizations up to date. - Social history:: Smoking status: Patient denies any tobacco usage or history of. Screenin:25 Abuse screen: Denies threats or abuse. Denies injuries from another. Nutritional jg9 screening: No deficits noted. Tuberculosis screening: No symptoms or risk factors identified. Fall Risk Fall in past 12 months (25 points). Assessment: 08:26 Reassessment: No changes from previously documented assessment. Pain: Complains of pain jg9 in chest and right breast and anterior aspect of right upper chest Pain does not radiate. Pain currently is 10 out of 10 on a pain scale. Aggravated by increased activity, breathing. Vital Signs: 07:55 BP 105 / 70; Pulse 78; Resp 17; Temp 96.8; Pulse Ox 98% on R/A; Weight 63.96 kg; Height jl7 5 ft. 2 in. (157.48 cm); Pain 10/10; 08:15 BP 111 / 66; Pulse 68; Resp 20; Pulse Ox 97% on R/A; Pain 10/10; jg9 09:50 BP 101 / 70; Pulse 66; Resp 20 S; Pulse Ox 97% ; Pain 4/10; jg9 07:55 Body Mass Index 25.79 (63.96 kg, 157.48 cm) jl7 ED Course: 07:44 Patient arrived in ED. as 07:57 Triage completed. jl7 07:57 Arm band placed on right wrist. jl7 08:07 Phu Miramontes MD is Attending Physician. kdr 08:21 Magali Monroy, [place] is Primary Nurse. jg9 08:25 Patient has correct armband on for positive identification. Bed in low position. Call jg9 light in reach. Side rails up X 1. Warm blanket given. 08:58 CXR XRAY In Process Unspecified. EDMS 08:58 Ribs Right XRAY In Process Unspecified. EDMS 09:03 Strep Sent. jg9 09:03 COVID-19/FLU A+B (Document "Date of Onset" if Symptomatic) Sent. jg9 09:57 No apparent distress. Resting quietly. Awaiting lab results, Awaiting radiology results.jg9 10:38 No provider procedures requiring assistance completed. Patient did not have IV access jg9 during this emergency room visit. Administered Medications: 08:27 Drug: traMADol 50 mg Route: PO; [facility] 09:03 Follow up: Response: No adverse reaction; Pain is decreased jg9 08:28 Drug: Ibuprofen 600 mg Route: PO; [facility] 09:03 Follow up: Response: No adverse reaction; Pain is decreased jg9 Outcome: 10:20 Discharge ordered by . kdr 10:39 Discharged to home ambulatory. jg9 10:39 Condition: stable 10:39 Discharge instructions given to patient, Instructed on discharge instructions, follow up and referral plans. Demonstrated understanding of instructions, follow-up care, Prescriptions given X 1. 10:39 Patient left the ED. jg9 Signatures: Dispatcher [employer] EDMS Phu Miramontes MD MD kdr Martinez, Amelia as Leal, Jahala RN RN jl7 Magali Arnold RN RN jh6 Magali Monroy RN RN jg9
--- NOTE | 2021-05-12 10:20 | EDPHYS ---
Physician Documentation [facility] Name: Maggie Hansen Age: 75 yrs Sex: Female : 1945 Arrival Date: 05/12/2021 Time: 07:44 Bed 1 Private MD: ED Physician Phu Miramontes HPI: 05/12 08:15 This 75 yrs old Female presents to ER via Ambulatory with complaints of Fall kdr Injury, rib pain, Headache. 08:15 Details of fall: The patient fell from an upright position, while walking. Onset: The kdr symptoms/episode began/occurred suddenly, Saturday morning. Associated injuries: The patient sustained injury to the chest, specifically the anterior aspect of right upper chest and right breast, pain with breathing, pain with movement, tenderness. Severity of symptoms: At their worst the symptoms were mild, moderate, just prior to arrival, in the emergency department the symptoms are unchanged. The patient has not experienced similar symptoms in the past. The patient has not recently seen a physician. Patient states that she was walking carrying a tray and fell forward hitting her chest on the trays she hit the ground. She also hit the right side of her face on the ground. Denies LOC. Historical: - Allergies: 07:57 No Known Allergies; jl7 - Home Meds: 07:57 rosuvastatin 5 mg oral cpSP 1 cap once daily [Active]; nifedipine 90 mg Oral TbER 1 tab jl7 once daily [Active]; lisinopril-hydrochlorothiazide 20-12.5 mg Oral tab 1 tab once daily [Active]; Janumet 50-1,000 mg oral tab 1 tab 2 times per day [Active]; Jardiance 25 mg oral tab 1 tab once daily [Active]; glimepiride 4 mg Oral tab 1 tab once daily [Active]; alendronate 35 mg oral tab 1 tab once wkly [Active]; - PMHx: 07:57 Diabetes - NIDDM; Diverticulitis; Hypertension; Diabetes mellitus; Hypertensive jl7 disorder; Osteoporosis; Hypercholesterolemia; - Immunization history:: Adult Immunizations up to date. - Social history:: Smoking status: Patient denies any tobacco usage or history of. ROS: 08:15 Constitutional: Negative for fever, chills, and weight loss, Eyes: Negative for injury, kdr pain, redness, and discharge, Neck: Negative for injury, pain, and swelling, Respiratory: Negative for shortness of breath, cough, wheezing, and pleuritic chest pain, Abdomen/GI: Negative for abdominal pain, nausea, vomiting, diarrhea, and constipation, Back: Negative for injury and pain, : Negative for injury, bleeding, discharge, and swelling, MS/Extremity: Negative for injury and deformity, Skin: Negative for injury, rash, and discoloration, Neuro: Negative for headache, weakness, numbness, tingling, and seizure activity. Psych: Negative for depression, anxiety, suicide ideation, homicidal ideation, and hallucinations, Allergy/Immunology: Negative for hives, rash, and allergies, Endocrine: Negative for neck swelling, polydipsia, polyuria, polyphagia, and marked weight changes, Hematologic/Lymphatic: Negative for swollen nodes, abnormal bleeding, and unusual bruising. 08:15 Cardiovascular: Positive for chest pain, with cough, with movement, of the anterior aspect of right upper chest, Negative for edema, orthopnea, palpitations, paroxysmal nocturnal dyspnea. Exam: 08:15 Constitutional: This is a well developed, well nourished patient who is awake, alert, kdr and in no acute distress. Head/Face: Normocephalic, atraumatic. Eyes: Pupils equal round and reactive to light, extra-ocular motions intact. Lids and lashes normal. Conjunctiva and sclera are non-icteric and not injected. Cornea within normal limits. Periorbital areas with no swelling, redness, or edema. Neck: Trachea midline, no thyromegaly or masses palpated, and no cervical lymphadenopathy. Supple, full range of motion without nuchal rigidity, or vertebral point tenderness. No Meningismus. Cardiovascular: Regular rate and rhythm with a normal S1 and S2. No gallops, murmurs, or rubs. Normal PMI, no JVD. No pulse deficits. Respiratory: Lungs have equal breath sounds bilaterally, clear to auscultation and percussion. No rales, rhonchi or wheezes noted. No increased work of breathing, no retractions or nasal flaring. Abdomen/GI: Soft, non-tender, with normal bowel sounds. No distension or tympany. No guarding or rebound. No evidence of tenderness throughout. Back: No spinal tenderness. No costovertebral tenderness. Full range of motion. Skin: Warm, dry with normal turgor. Normal color with no rashes, no lesions, and no evidence of cellulitis. MS/ Extremity: Pulses equal, no cyanosis. Neurovascular intact. Full, normal range of motion. Neuro: Awake and alert, GCS 15, oriented to person, place, time, and situation. Cranial nerves II-XII grossly intact. Motor strength 5/5 in all extremities. Sensory grossly intact. Cerebellar exam normal. Normal gait. Psych: Awake, alert, with orientation to person, place and time. Behavior, mood, and affect are within normal limits. 08:15 Chest/axilla: Inspection: abrasion, that is mild, of the anterior aspect of right upper chest Palpation: tenderness, that is mild, of the anterior aspect of right upper chest. Vital Signs: 07:55 BP 105 / 70; Pulse 78; Resp 17; Temp 96.8; Pulse Ox 98% on R/A; Weight 63.96 kg; Height jl7 5 ft. 2 in. (157.48 cm); Pain 10/10; 08:15 BP 111 / 66; Pulse 68; Resp 20; Pulse Ox 97% on R/A; Pain 10/10; jg9 09:50 BP 101 / 70; Pulse 66; Resp 20 S; Pulse Ox 97% ; Pain 4/10; jg9 07:55 Body Mass Index 25.79 (63.96 kg, 157.48 cm) jl7 MDM: 08:15 Data reviewed: vital signs, nurses notes, lab test result(s), radiologic studies. kdr Counseling: I had a detailed discussion with the patient and/or guardian regarding: the historical points, exam findings, and any diagnostic results supporting the discharge/admit diagnosis, lab results, radiology results, the need for outpatient follow up. 10:20 Patient medically screened. kdr 05/12 08:26 Order name: COVID-19/FLU A+B (Document "Date of Onset" if Symptomatic) j9 05/12 08:26 Order name: Strep j9 05/12 08:15 Order name: CXR XRAY; Complete Time: 10:13 kdr 05/12 08:27 Order name: COVID-19/FLU A+B; Complete Time: 10:13 EDMS 05/12 08:27 Order name: Group A Streptococcus Rapid Sc EDMS 05/12 09:33 Order name: Throat Culture [facility] 05/12 08:15 Order name: Ribs Right XRAY; Complete Time: 10:13 kdr Administered Medications: 08:27 Drug: traMADol 50 mg Route: PO; [facility] 09:03 Follow up: Response: No adverse reaction; Pain is decreased jg9 08:28 Drug: Ibuprofen 600 mg Route: PO; [facility] 09:03 Follow up: Response: No adverse reaction; Pain is decreased jg9 Disposition Summary: 05/12/21 10:20 Discharge Ordered Location: Home kdr Problem: new kdr Symptoms: have improved kdr Condition: Stable kdr Diagnosis - Fracture of one rib, right side kdr Followup: kdr - With: Private Physician - When: 2 - 3 days - Reason: If symptoms return, Further diagnostic work-up, Recheck today's complaints, Continuance of care, Re-evaluation by your physician Discharge Instructions: - Discharge Summary Sheet kdr - Rib Fracture, [id number] kdr Forms: - Medication Reconciliation Form kdr - Thank You Letter kdr Prescriptions: - Tramadol 50 mg Oral Tablet - take 1 tablet by ORAL route every 8 hours as needed; 12 tablet; Refills: 0, kdr Product Selection Permitted Signatures: Dispatcher [employer] [facility] Phu Miramontes MD MD kdr Leal, Jahala RN RN jl7 Magali Arnold RN RN jh6 Magali Monroy RN jg9
[2021-05-12 10:53] VITALS: TEMP 96.8
[2021-05-12 10:54] VITALS: O2SAT 97
[2021-05-12 10:56] VITALS: BP 101/70
== END 2021-05-12 10:39 | disposition home or self-care (01) ==
LOC: ER 07:42
DX: S22.31XA Fracture of one rib, right side, initial encounter for closed fracture (principal); W18.39XA Other fall on same level, initial encounter; I10 Essential (primary) hypertension; E11.9 Type 2 diabetes mellitus without complications; E78.00 Pure hypercholesterolemia, unspecified; Z20.822 Contact with and (suspected) exposure to COVID-19
CPT/HCPCS: 87070; 87081; 0240U; 71045; 71100; 99284